=== PATIENT | female | born 1940 | race Caucasian/White ===

== ENCOUNTER 2018-10-25 23:30 | Observation (INO) ==
--- NOTE | 2018-10-25 23:47 | ERNOTE ---
Chest Pain/Cardiac HPI Date of Service: 10/25/18 Chief Complaint: Chest Pain Time Seen by Provider: 10/25/18 23:33 Source: patient Exam Limitations: no limitations Immunizations: IMMUNIZATION HX Immunizations Up to Date Yes History of Influenza Vaccine No Hx Pneumococcal Vaccination No Allergies/Adverse Reactions: Allergies atorvastatin [From Lipitor] Allergy (Intermediate, Verified 10/25/18 23:51) myalgia rabeprazole [From Aciphex] Allergy (Intermediate, Verified 10/25/18 23:51) itching phenobarbital Allergy (Verified 10/25/18 23:51) simvastatin [From Zocor] Adverse Reaction (Intermediate, Verified 10/25/18 23:51) muscle aches aspirin Adverse Reaction (Verified 10/25/18 23:51) pt takes baby aspirin daily, states she is allergic to the "full dose aspirin" Home Medications: HOME MEDICATIONS Aspirin 81 mg PO DAILY 04/24/16 [Last Taken Unknown] Pantoprazole Sodium 40 mg PO DAILY 09/29/17 [Last Taken Unknown] calcium carbonate 500 mg (1,250 mg)-vitamin D3 400 unit tablet 1 tab PO BID 02/27/18 [Last Taken Unknown] carvedilol 6.25 mg tablet 3.1 mg PO BID tab 02/27/18 [Last Taken Unknown] cholecalciferol (vitamin D3) 2,000 unit capsule 2,000 unit PO DAILY 02/27/18 [Last Taken Unknown] esomeprazole magnesium 40 mg capsule,delayed release 40 mg PO DAILY 02/27/18 [Last Taken Unknown] ipratropium-albuterol 0.5 mg-3 mg(2.5 mg base)/3 mL nebulization soln 3 ml IH BID ml 02/27/18 [Last Taken Unknown] furosemide 40 mg tablet 20 mg PO DAILY #90 tab 04/29/18 [Last Taken Unknown] losartan 50 mg tablet 50 mg PO DAILY #90 tab 04/29/18 [Last Taken Unknown] Blood Sugar Diagnostic [Contour Next Test Strips] 0 ea .ROUTE .MEDSUPPLY 06/13/18 [Last Taken Unknown] lancets 30 gauge See Dose Instructions .ROUTE .MEDSUPPLY #200 ea 06/27/18 [Last Taken Unknown] potassium chloride ER 10 mEq tablet,extended release(part/cryst) 10 meq PO DAILY #90 tab 06/27/18 [Last Taken Unknown] Narrative: 78-year-old female approximately an hour ago developed chest pain called the first-aid squad given nitro and aspirin her chest pain in the emergency room was about 7 out of 10 says it is not so bad as compared to before however noted that she is in atrial fibrillation in the rapid ventricular response last EKG dating back to June she was in sinus rhythm but she does have a history of 2016 of atrial fibrillation is also has low sats off O2 she is in the high 80s Timing: constant Severity/Quality: moderate Location: substernal, central Chest Pain Radiation: no radiation Activities at Onset: none Modifying Factors - Improves: Present: nitroglycerin Nitro Today/Relief: 0.4 mg x 1 Aspirin Treatment Today: 325 mg x 1 Associated Symptoms: Present: shortness of breath Prior Chest Pain/Cardiac Workup: Reports: no prior cardiac workup Review of Systems - Review of Systems Constitutional: Present: no symptoms reported EYE: Present: no symptoms reported ENT: Present: no symptoms reported Respiratory: Present: shortness of breath Cardiology: Present: chest pain Gastrointestinal/Abdominal: Present: no symptoms reported Genitourinary: Present: no symptoms reported Musculoskeletal: Present: back pain Skin: Present: no symptoms reported Neurological: Present: no symptoms reported Endocrine: Present: no symptoms reported Psych: Present: no symptoms reported All Other Systems: All systems neg except as marked Medical History (Updated 10/26/18 @ 01:12 by Moe Hoffmann MD) Osteoarthritis (Chronic) Onset Date: Unknown LV dysfunction (Chronic) Onset Date: Unknown Regional LV dysfunction with a hypokinetic septum and apex. Ejection Fraction is 50-55% Intracranial hemorrhage (Chronic) Onset Date: ~05/2015 [facility] Neurosurgery after fall. 05/29/15 CT brain showed left frontal epidural hematoma with 7mm of left to right midline shift, small left frontal parietal subarachnoid hemorrhage. left posterior subgaleal hematoma Hypertension (Chronic) Onset Date: ~1992 Hyperlipidemia (Chronic) Onset Date: ~1992 Hiatal hernia (Chronic) Onset Date: Unknown Glucose intolerance (Chronic) Onset Date: Unknown Diverticulitis (Chronic) Onset Date: Unknown Diabetes 1.5, managed as type 2 (Chronic) Onset Date: Unknown Depression (Chronic) Onset Date: Unknown CAD (coronary artery disease) (Chronic) Onset Date: Unknown two vessel, sub-totally occluded left anterior descending 40-50% stenosis at the origin of the right coronary Anxiety (Chronic) Onset Date: Unknown Hx of bone density study Onset Date: ~03/2003 Osteopenia, spine -1.4, hip -1.9 Myocardial infarction Onset Date: ~200604/24/16 Non Q wave, jasvir-procedural MD as a consequence of a diagonal branch occlusion, non STEMI MD Osteoporosis Onset Date: Unknown Restless leg syndrome Onset Date: Unknown Rotator cuff syndrome Onset Date: Unknown bilateral shoulders right greater than left Surgical History: Surgical History (Updated 02/27/18 @ 15:11 by Gloria White RN) Abnormal angiogram Onset Date: ~04/[address] elevation MD, two vessel CAD, the LAD is chronically occluded after the D1 branch and fills by R to L collaterals. The D1 had a ruptured plaque with a subtotal occlusion and slow flow. The circumflex has diffuse luminal irregularities. The RCA is large with mild luminal irregularities. Stent to the D1 with a 2.25 x 16 mm Synergy DE stent, 99% to 0% Epidermal cyst Onset Date: ~02/25/14 excision epidermal inclusion cyst. Wild; Left breast H/O colonoscopy Onset Date: ~10/09/12 Ermelinda severe sigmoid diverticulosis H/O heart artery stent Onset Date: ~07/2006 Drug eluding stent to the LAD, 07/2006 using a 2.5 x 20mm TAXUS drug eluding stent History of cardiac cath Onset Date: ~2006 Stent placement to the LAD History of cataract surgery Onset Date: ~10/2003 bilateral History of craniotomy Onset Date: ~05/29/15 [facility] History of esophagogastroduodenoscopy (EGD) Onset Date: ~02/02/13 Wild with foreign body removal History of esophagogastroduodenoscopy (EGD) Onset Date: ~10/09/12 with Biopsy; Ermelinda Vianey test Negative, large hiatal hernia History of hysterectomy Onset Date: ~1971 Abdominal History of incision and drainage Onset Date: ~02/10/14 Talhayony; Left breast abscess- epidermal inclusion cyst with acute inflammation Hx laparoscopic cholecystectomy Onset Date: ~1982 open Family History: Family History (Updated 02/27/18 @ 15:30 by Gloria White RN) Father , age 57 CVA (cerebral vascular accident) Mother , age 73 COPD (chronic obstructive pulmonary disease) Social History: Preferred Language Nepali Smoking Status Never smoker Abuse History No History of abuse Psych History No pertinent hx (Last Updated 02/27/18 @ 15:32 by Gloria White RN) No Social History Section defined Physical Exam - Physical Exam General Appearance: Present: wd/wn, alert, moderate distress Head Exam: Present: normal inspection, no evidence of injury Eye Exam: Normal inspection: bilateral Ears, Nose, Throat: Present: normal ENT inspection Neck: Present: normal inspection, nontender Respiratory: Present: decreased breath sounds, rales, wheezing Cardiovascular/Chest: Present: irregularly irregular Peripheral Pulses: N=norm/S=strong/W=weak/B=bound/A=absent: Carotid (R): Normal, Carotid (L): Normal Gastrointestinal/Abdominal: Present: normal bowel sounds Back Exam: Present: normal inspection, normal range of motion Extremity Exam: Present: normal inspection, no edema Neurological Exam: Present: alert, oriented Skin Exam: Present: normal color Progress - Vital Signs Patient's Vital Signs:: I have reviewed the patient's vital signs. Vital Signs: Vital Signs 10/25/18 23:32 Temperature 36.6 C Pulse Rate 121 H Respiratory Rate 18 O2 Sat by Pulse Oximetry 86 L - EKG EKG #1 EKG: atrial fibrillation EKG read: Interp. by me EKG Comments: Atrial fibrillation rapid ventricular response heart rate 116 incomplete right bundle branch block LVH new finding compared to EKG dated 06/13 9 - X-Ray X-Ray #1 X-Ray: chest Interpretation: Interp. by me X-ray Comments: No acute disease - Progress/Reassessment Chief Complaint: Chest Pain Departure Clinical Impression: Atrial fibrillation with rapid ventricular response, CHF (congestive heart failure), UTI (urinary tract infection) - Departure Disposition: Short Term Hospital Inpatient Condition: Stable Referrals: Suman Sewell MD [Primary Care Provider] -
[2018-10-25] MEDS ORDERED: ALBUTEROL SULFATE/IPRATROPIUM 3 ML NEBU IH ONE ×2 (23:51→23:52)
[2018-10-25] MEDS ORDERED: DILTIAZEM HCL 5 MG/ML VIAL IV ONE ×2 (23:51→23:53)
[2018-10-25] MEDS ORDERED: DILTIAZEM HCL 125 MG in DEXTROSE 5 % IN WATER 100 ML IV PRN ×2 (23:52)
[2018-10-26 00:11] LABS: Hematocrit 42.7 % (37.0-47.0); Hemoglobin 14.7 gm/dL (12.5-16.0); Mean Cell Volume 95.5 fl (78-100); Mean Corpuscular Hemoglobin 32.9 pg (27-31); Mean Corpuscular Hgb Conc 34.4 g/dl (32-36); Mean Platelet Volume 10.8 fl (8-12.5); Neutrophil % 56.8 % (42-75.0); Platelet Count 219 K/mm3 (150-450); Red Blood Count 4.47 M/mm3 (4.2-5.4); Red Cell Distribution Width 12.5 % (11.5-14.0); White Blood Count 7.1 K/mm3 (4.0-10.5)
[2018-10-26 00:22] LABS: Prothrombin Time (Patient) 10.5 Seconds (9.1-10.7)
[2018-10-26 00:24] LABS: Urine Bilirubin Negative (NEGATIVE); Urine Ketone Negative (NEGATIVE); Urine Nitrite Negative (NEGATIVE); Urine Protein 30 mg/dL (NEGATIVE); Urine Urobilinogen Normal (NORMAL)
[2018-10-26 00:25] LABS: INR 1.06 INR (0.92-1.08)
[2018-10-26 00:26] LABS: Partial Thrombolplastin Time 22.8 Seconds (24-32)
[2018-10-26 00:34] LABS: ALT 17 U/L (19-67); AST 19 U/L (0-48); Albumin * 3.5 gm/dl (3.4-5.0); Alkaline Phosphatase * 48 U/L (50-170); Anion Gap 9.9 mmol/L (6.8-13.8); BNP * 2416 pg/mL (5-550); BUN/Creatinine Ratio 24.1 (9.0-21.6); Bilirubin, Total 0.6 mg/dL (0.0-1.1); Blood Urea Nitrogen 19 mg/dL (3-23); Ca. Corrected For Albumin 9.2 mg/dL (8.4-10.2); Calcium * 9.1 mg/dL (7.9-10.9); Carbon Dioxide 30.7 mmol/L (24-32.6); Chloride 103 mmol/L (97-106); Glucose * 227 mg/dL (70-110); Potassium 3.6 mmol/L (3.4-4.6); Sodium 140 mmol/L (132-142); Total Protein 7.1 gm/dL (6.2-8.2); Troponin I Less than 0.017 ng/mL (0.00-0.10)
[2018-10-26 00:35] LABS: Urine Appearance Slightly Cloudy (CLEAR); Urine Blood 5 /ul (NEGATIVE); Urine Color Yellow
[2018-10-26 00:36] LABS: Urine Bacteria 1+; Urine RBC None Seen /hpf (0-5); Urine WBC 0-5 /hpf (0-5)
[2018-10-26] MEDS ORDERED: FUROSEMIDE 10 MG/ML VIAL IV ONE (00:47)
[2018-10-26] MEDS ORDERED: ENOXAPARIN SODIUM 80 MG/0.8 ML DISP.SYRIN SC ONE (01:08)
[2018-10-26] MEDS ORDERED: NITROFURANTOIN/NITROFURAN MAC 100 MG CAPSULE PO ONE (01:15)
[2018-10-26] MEDS ORDERED: DILTIAZEM HCL 240 MG CAP.SR.24H PO SCH (07:30)
--- NOTE | 2018-10-26 07:55 | HP ---
Chief Complaint - Chief Complaint Date of Service: 10/26/18 Time of Service: 07:10 Chief Complaint: dyspnea, atrial fib new onset with rvr History of Present Illness: Ann Cook is an 78-year-old female who presented to the emergency room with chief complaint of dyspnea. Evaluation in the emergency room revealed that she was in congestive heart failure and was in atrial fibrillation with rapid ventricular response. She was given IV furosemide and diuresed a large amount of fluid. She was also given diltiazem 20 mg IV push and then put on a diltiazem drip. Then she was admitted to SCU and arrived in SCU about [address] longoria called me at 1:10 AM to advise of her admission. She then converted to normal sinus rhythm about 5:00 this morning. She is no longer short of breath. She is not feeling back to normal just yet but she does feel better than she did on admission. Auscultation of her lungs this morning is clear. She is in normal sinus rhythm rate of 80. Her O2 sats are in the mid 90s. I will convert her over to oral diltiazem and then an hour later discontinue the IV diltiazem. Nursing will get her up to walk and monitor her heart during activity. Anticipate discharge this afternoon. Medical History (Updated 10/26/18 @ 01:12 by Moe Hoffmann MD) Osteoarthritis (Chronic) Onset Date: Unknown LV dysfunction (Chronic) Onset Date: Unknown Regional LV dysfunction with a hypokinetic septum and apex. Ejection Fraction is 50-55% Intracranial hemorrhage (Chronic) Onset Date: ~05/2015 [facility] Neurosurgery after fall. 05/29/15 CT brain showed left frontal epidural hematoma with 7mm of left to right midline shift, small left frontal parietal subarachnoid hemorrhage. left posterior subgaleal hematoma Hypertension (Chronic) Onset Date: ~1992 Hyperlipidemia (Chronic) Onset Date: ~1992 Hiatal hernia (Chronic) Onset Date: Unknown Glucose intolerance (Chronic) Onset Date: Unknown Diverticulitis (Chronic) Onset Date: Unknown Diabetes 1.5, managed as type 2 (Chronic) Onset Date: Unknown Depression (Chronic) Onset Date: Unknown CAD (coronary artery disease) (Chronic) Onset Date: Unknown two vessel, sub-totally occluded left anterior descending 40-50% stenosis at the origin of the right coronary Anxiety (Chronic) Onset Date: Unknown Hx of bone density study Onset Date: ~03/2003 Osteopenia, spine -1.4, hip -1.9 Myocardial infarction Onset Date: ~200604/24/16 Non Q wave, jasvir-procedural MD as a consequence of a diagonal branch occlusion, non STEMI MD Osteoporosis Onset Date: Unknown Restless leg syndrome Onset Date: Unknown Rotator cuff syndrome Onset Date: Unknown bilateral shoulders right greater than left Surgical History: Surgical History (Updated 02/27/18 @ 15:11 by Gloria White RN) Abnormal angiogram Onset Date: ~04/[address] elevation MD, two vessel CAD, the LAD is chronically occluded after the D1 branch and fills by R to L collaterals. The D1 had a ruptured plaque with a subtotal occlusion and slow flow. The circumflex has diffuse luminal irregularities. The RCA is large with mild luminal irregularities. Stent to the D1 with a 2.25 x 16 mm Synergy DE stent, 99% to 0% Epidermal cyst Onset Date: ~02/25/14 excision epidermal inclusion cyst. Wild; Left breast H/O colonoscopy Onset Date: ~10/09/12 Ermelinda severe sigmoid diverticulosis H/O heart artery stent Onset Date: ~07/2006 Drug eluding stent to the LAD, 07/2006 using a 2.5 x 20mm TAXUS drug eluding stent History of cardiac cath Onset Date: ~2006 Stent placement to the LAD History of cataract surgery Onset Date: ~10/2003 bilateral History of craniotomy Onset Date: ~05/29/15 [facility] History of esophagogastroduodenoscopy (EGD) Onset Date: ~02/02/13 Wild with foreign body removal History of esophagogastroduodenoscopy (EGD) Onset Date: ~10/09/12 with Biopsy; Ermelinda Vianey test Negative, large hiatal hernia History of hysterectomy Onset Date: ~1971 Abdominal History of incision and drainage Onset Date: ~02/10/14 [place]; Left breast abscess- epidermal inclusion cyst with acute inflammation Hx laparoscopic cholecystectomy Onset Date: ~1982 open Family History: Family History (Updated 02/27/18 @ 15:30 by Gloria White RN) Father , age 57 CVA (cerebral vascular accident) Mother , age 73 COPD (chronic obstructive pulmonary disease) Social History: Patient Lives/Resources [facility] Utilized Occupation Retired Preferred Language Chinese Do you have any christianity or No cultural preference? Smoking Status Never smoker Have you smoked in the past 12 No months Do you dip or chew tobacco No Abuse History No History of abuse Psych History No pertinent hx Alcohol Use none Drug Use none (Last Updated 02/27/18 @ 15:32 by Gloria White RN) No Social History Section defined Review Of Systems (GEN) - Review of Systems Generalized/Overall Review: Present: Weakness, Malaise EENTM: Present: No Symptoms Reported Respiratory: Present: Shortness of Breath, Wheezing Cardiac: Present: Palpitations Abdominal: Present: No Symptoms Reported Genitourinary: Present: No Symptoms Reported Musculoskeletal: Present: No Symptoms Reported Neurological: Present: No Symptoms Reported Skin: Present: No Symptoms Reported Endocrine: Present: No Symptoms Reported Misc: All systems neg except as marked Immunizations: IMMUNIZATION HX Immunizations Up to Date Yes History of Influenza Vaccine No Hx Pneumococcal Vaccination No Allergies/Adverse Reactions: Allergies Allergy/AdvReac Type Severity Reaction Status Date / Time atorvastatin [From Lipitor] Allergy Intermediate myalgia Verified 10/25/18 23:51 rabeprazole [From Aciphex] Allergy Intermediate itching Verified 10/25/18 23:51 phenobarbital Allergy Verified 10/25/18 23:51 simvastatin [From Zocor] AdvReac Intermediate muscle Verified 10/25/18 23:51 aches aspirin AdvReac Verified 10/25/18 23:51 Home Medications: HOME MEDICATIONS Aspirin 81 mg PO DAILY 04/24/16 [Last Taken Unknown] Pantoprazole Sodium 40 mg PO DAILY 09/29/17 [Last Taken Unknown] calcium carbonate 500 mg (1,250 mg)-vitamin D3 400 unit tablet 1 tab PO BID 02/27/18 [Last Taken Unknown] carvedilol 6.25 mg tablet 3.1 mg PO BID tab 02/27/18 [Last Taken Unknown] cholecalciferol (vitamin D3) 2,000 unit capsule 1,000 unit PO DAILY 02/27/18 [Last Taken Unknown] ipratropium-albuterol 0.5 mg-3 mg(2.5 mg base)/3 mL nebulization soln 3 ml IH BID ml 02/27/18 [Last Taken Unknown] furosemide 40 mg tablet 20 mg PO DAILY #90 tab 04/29/18 [Last Taken Unknown] losartan 50 mg tablet 50 mg PO DAILY #90 tab 04/29/18 [Last Taken Unknown] Blood Sugar Diagnostic [Contour Next Test Strips] 0 ea .ROUTE .MEDSUPPLY 06/13/18 [Last Taken Unknown] lancets 30 gauge See Dose Instructions .ROUTE .MEDSUPPLY #200 ea 06/27/18 [Last Taken Unknown] potassium chloride ER 10 mEq tablet,extended release(part/cryst) 10 meq PO DAILY #90 tab 06/27/18 [Last Taken Unknown] Exam - Exam Vital Signs: Vital Signs - Last Taken Temp 36.7 C 10/26/18 03:52 Pulse 68 10/26/18 06:59 Resp 16 10/26/18 06:59 BP 139/68 10/26/18 06:59 Pulse Ox 100 10/26/18 06:59 Constitutional: Present: Alert, Oriented x3, Cooperative, Well developed, Well nourished, No distress ENT Exam: Present: normal ENT inspection, hearing grossly normal, pharynx normal, TMs normal Eye Exam: bilateral eye: normal inspection, PERRL, EOMI Neck: Present: non-tender, full range of motion Back Exam: Present: normal inspection, no CVA tenderness, no vertebral tenderness Breasts: Present: Exam deferred Respiratory: Present: chest non-tender, lungs clear Cardiovascular/Chest: Present: normal peripheral pulses, regular rate, rhythm, no chest tenderness, no edema, no gallop, no JVD, no murmur, no rub Peripheral Pulses: carotid (R): 2+, carotid (L): 2+, radial (R): 2+, radial (L): 2+ Abdomen: Present: Normal bowel sounds, soft, nontender, nondistended, no rebound tenderness, no hepatospenomegaly, no masses /Rectal: Present: Exam deferred Extremity: Present: normal range of motion, non-tender, normal inspection, no pedal edema, no calf tenderness, normal capillary refill Skin Exam: Present: normal color, warm/dry, no cyanosis Lymphatic: Present: no adenopathy Neurologic: Present: meat pickler II-XII nml as tested, normal cerebellar test, no motor/sensory deficits, alert, normal mood/affect, oriented x 3 Appearance: Present: appropriate appearance, appropriate insight, neat, no memory impairment Eye contact: Present: cooperative, good eye contact, normal speech Thoughts: Present: normal thought pattern, no apparent hallucination Diagnostic Studies: Abnormal Lab Results 10/25/18 10/25/18 10/25/18 Range/Units 23:50 23:50 23:50 MCH 32.9 H (27-31) pg Monocytes % 9.2 H (0.0-9) % PTT ([place]) 22.8 L (24-32) Seconds BUN/Creatinine Ratio 24.1 H (9.0-21.6) Random Glucose 227 H (70-110) mg/dL ALT 17 L (19-67) U/L Alkaline Phosphatase 48 L (50-170) U/L B-Natriuretic Peptide 2416 H (5-550) pg/mL Urine Protein (NEGATIVE) mg/dL Urine Glucose (UA) (NEGATIVE) mg/dL Urine Blood (NEGATIVE) /ul Ur Leukocyte Esterase (NEGATIVE) /ul Ur Epithelial Cells (0-5) /hpf Urine Bacteria (NONE) 10/26/18 Range/Units 00:26 MCH (27-31) pg Monocytes % (0.0-9) % PTT ([place]) (24-32) Seconds BUN/Creatinine Ratio (9.0-21.6) Random Glucose (70-110) mg/dL ALT (19-67) U/L Alkaline Phosphatase (50-170) U/L B-Natriuretic Peptide (5-550) pg/mL Urine Protein 30 H (NEGATIVE) mg/dL Urine Glucose (UA) 250 H (NEGATIVE) mg/dL Urine Blood 5 H (NEGATIVE) /ul Ur Leukocyte Esterase 75 H (NEGATIVE) /ul Ur Epithelial Cells 5-10 H (0-5) /hpf Urine Bacteria 1+ H (NONE) Microbiology 10/26/18 00:05 Urine Culture - Preliminary Urine,Voided No Growth Laboratory Results WBC 7.1 K/mm3 (4.0-10.5) 10/25/18 23:50 RBC 4.47 M/mm3 (4.2-5.4) 10/25/18 23:50 Hgb 14.7 gm/dL (12.5-16.0) 10/25/18 23:50 Hct 42.7 % (37.0-47.0) 10/25/18 23:50 MCV 95.5 fl (78-100) 10/25/18 23:50 MCH 32.9 pg (27-31) H 10/25/18 23:50 MCHC 34.4 g/dl (32-36) 10/25/18 23:50 RDW 12.5 % (11.5-14.0) 10/25/18 23:50 Plt Count 219 K/mm3 (150-450) 10/25/18 23:50 MPV 10.8 fl (8-12.5) 10/25/18 23:50 Immature Gran % (Auto) 0.10 % (0.001-0.429) 10/25/18 23:50 Immature Gran # (Auto) 0.01 K/mm3 (0.000-0.0310) 10/25/18 23:50 56.8 % (42-75.0) 10/25/18 23:50 31.5 % (20-51) 10/25/18 23:50 9.2 % (0.0-9) H 10/25/18 23:50 2.0 % (0.0-3.0) 10/25/18 23:50 0.4 % (0.0-1.0) 10/25/18 23:50 Nucleated RBC % 0.0 k/mm3 (0-1) 10/25/18 23:50 4.0 K/mm3 (1.3-6.0) 10/25/18 23:50 2.24 k/mm3 (1.5-3.5) 10/25/18 23:50 0.7 k/mm3 (0.0-1.0) 10/25/18 23:50 0.1 k/mm3 (0.0-0.7) 10/25/18 23:50 Absolute Basophils 0.0 k/mm3 (0.0-0.1) 10/25/18 23:50 PT 10.5 Seconds (9.1-10.7) 10/25/18 23:50 INR (Anticoag Therapy) 1.06 INR (0.92-1.08) 10/25/18 23:50 PTT ([place]) 22.8 Seconds (24-32) L 10/25/18 23:50 Sodium 140 mmol/L (132-142) 10/25/18 23:50 142 mmol/L (130-142) 10/25/18 23:50 Potassium 3.6 mmol/L (3.4-4.6) 10/25/18 23:50 Chloride 103 mmol/L (97-106) 10/25/18 23:50 Carbon Dioxide 30.7 mmol/L (24-32.6) 10/25/18 23:50 9.9 mmol/L (6.8-13.8) 10/25/18 23:50 BUN 19 mg/dL (3-23) 10/25/18 23:50 0.79 mg/dL (0.4-1.4) 10/25/18 23:50 Est GFR (Non-Af Amer) 74 mL/min (60-130) 10/25/18 23:50 24.1 (9.0-21.6) H 10/25/18 23:50 227 mg/dL (70-110) H 10/25/18 23:50 Calcium 9.1 mg/dL (7.9-10.9) 10/25/18 23:50 Calcium Adj for Albumin 9.2 mg/dL (8.4-10.2) 10/25/18 23:50 0.6 mg/dL (0.0-1.1) 10/25/18 23:50 AST 19 U/L (0-48) 10/25/18 23:50 ALT 17 U/L (19-67) L 10/25/18 23:50 48 U/L (50-170) L 10/25/18 23:50 Less than 0.017 ng/mL (0.00-0.10) 10/25/18 23:50 B-Natriuretic Peptide 2416 pg/mL (5-550) H 10/25/18 23:50 7.1 gm/dL (6.2-8.2) 10/25/18 23:50 3.5 gm/dl (3.4-5.0) 10/25/18 23:50 Yellow 10/26/18 00:26 Slightly cloudy (CLEAR) 10/26/18 00:26 7.0 pH (5.0-7.0) 10/26/18 00:26 Ur Specific [place] 1.020 SP.GR. (1.005-1.010) 10/26/18 00:26 30 mg/dL (NEGATIVE) H 10/26/18 00:26 250 mg/dL (NEGATIVE) H 10/26/18 00:26 Negative mg/dL (NEGATIVE) 10/26/18 00:26 5 /ul (NEGATIVE) H 10/26/18 00:26 Negative (NEGATIVE) 10/26/18 00:26 Negative mg/dl (NEGATIVE) 10/26/18 00:26 Prot Sulfosalicylic Acd 1+ mg/dL (0) 10/26/18 00:26 Normal EU/dl (NORMAL) 10/26/18 00:26 Ur Leukocyte Esterase 75 /ul (NEGATIVE) H 10/26/18 00:26 None seen /hpf (0-5) 10/26/18 00:26 0-5 /hpf (0-5) 10/26/18 00:26 Ur Epithelial Cells 5-10 /hpf (0-5) H 10/26/18 00:26 1+ (NONE) H 10/26/18 00:26 Culture to follow 10/26/18 00:26 Assessment/Plan - Narrative Narrative: 1. Change from SCU regular admission to code 44 observation stay 2. Add diltiazem SR 240 mg 1 daily 3. DC Hansen catheter 4. Ambulate in the SCU area while monitoring her heart. 5. Anticipate discharge late this afternoon. - Assessment/Plan (1) Atrial fibrillation with rapid ventricular response Problem: Acute (2) CHF (congestive heart failure) Problem: Acute (3) Dyspnea Problem: Acute Qualifiers: Dyspnea type: shortness of breath Qualified Code(s): R06.02 - Shortness of breath; R06.00 - Dyspnea, unspecified; R06.01 - Orthopnea (4) CAD (coronary artery disease) Problem: Chronic Qualifiers: Coronary Disease-Associated Artery/Lesion type: [place] artery [place] vs. transplanted heart: [place] heart Associated angina: without angina Qualified Code(s): I25.10 - Atherosclerotic heart disease of [place] coronary artery without angina pectoris
[2018-10-26] MEDS ORDERED: PANTOPRAZOLE SODIUM 40 MG TABLET.EC PO SCH (08:00)
[2018-10-26] MEDS ORDERED: ALBUTEROL SULFATE/IPRATROPIUM 3 ML NEBU IH SCH (08:00)
[2018-10-26] MEDS ORDERED: POTASSIUM CHLORIDE 10 MEQ TABLET.SA PO SCH (09:00)
[2018-10-26] MEDS ORDERED: CARVEDILOL 3.125 MG TABLET PO SCH (09:00)
[2018-10-26] MEDS ORDERED: LOSARTAN POTASSIUM 50 MG TABLET PO SCH (09:00)
[2018-10-26] MEDS ORDERED: ASPIRIN 81 MG TAB.CHEW PO SCH (09:00)
[2018-10-26] MEDS ORDERED: FUROSEMIDE 20 MG TABLET PO SCH (11:00)
--- NOTE | 2018-10-26 13:44 | DS ---
(1) Atrial fibrillation with rapid ventricular response Problem: Resolved (2) CHF (congestive heart failure) Problem: Acute Qualifiers: Heart failure type: unspecified Heart failure chronicity: acute Qualified Code(s): I50.9 - Heart failure, unspecified (3) Dyspnea Problem: Resolved Qualifiers: Dyspnea type: shortness of breath Qualified Code(s): R06.02 - Shortness of breath; R06.00 - Dyspnea, unspecified; R06.01 - Orthopnea (4) Sinus bradycardia Problem: Acute (5) CAD (coronary artery disease) Problem: Chronic Qualifiers: Coronary Disease-Associated Artery/Lesion type: [place] artery [place] vs. transplanted heart: [place] heart Associated angina: without angina Qualified Code(s): I25.10 - Atherosclerotic heart disease of [place] coronary artery without angina pectoris Description of Stay: Ann Cook is an 78-year-old female admitted through the emergency room with atrial fibrillation and rapid ventricular response. She was started with IV diltiazem 20 mg and then placed on a diltiazem drip per protocol. She converted to normal sinus rhythm very early this morning and has remained in sinus rhythm for about the last 6 hours. I started her on oral diltiazem and discontinue the diltiazem drip. She has done very well and has had no return of atrial fibrillation. She was also diuresed in the emergency room and large amount of fluid was removed. A Hansen catheter was placed because of the diuresis but it has since been removed. This afternoon her heart rate dropped from 76 to about 52 bpm. It is sinus bradycardia. She is completely asymptomatic with this. She has been up and walking in the halls with the standby assist and has done very well. She can be discharged after 4 PM. Procedures Performed: none Results and Findings: Pending Mircobiology Results 10/26/18 00:05 Urine,Voided Urine Culture - Preliminary No Growth Lab Pending Results 10/25/18 23:50: WBC 7.1, RBC 4.47, Hgb 14.7, Hct 42.7, MCV 95.5, MCH 32.9 H, MCHC 34.4, RDW 12.5, Plt Count 219, MPV 10.8, Immature Gran % (Auto) 0.10, Immature Gran # (Auto) 0.01, Neutrophils % 56.8, Lymphocytes % 31.5, Monocytes % 9.2 H, Eosinophils % 2.0, Basophils % 0.4, Nucleated RBC % 0.0, Neutrophils # 4.0, Lymphocytes # 2.24, Monocytes # 0.7, Eosinophils # 0.1, Absolute Basophils 0.0 10/25/18 23:50: Sodium 140, Plasma Sodium 142, Potassium 3.6, Chloride 103, Carbon Dioxide 30.7, Anion Gap 9.9, BUN 19, Creatinine 0.79, Est GFR (Non-Af Amer) 74, BUN/Creatinine Ratio 24.1 H, Random Glucose 227 H, Calcium 9.1, Calcium Adj for Albumin 9.2, Total Bilirubin 0.6, AST 19, ALT 17 L, Alkaline Phosphatase 48 L, Troponin I Less than 0.017, B-Natriuretic Peptide 2416 H, Total Protein 7.1, Albumin 3.5 10/25/18 23:50: PT 10.5, INR (Anticoag Therapy) 1.06, PTT ([place]) 22.8 L 10/26/18 00:26: Urine Color Yellow, Urine Appearance Slightly cloudy, Urine pH 7.0, Ur Specific [place] 1.020, Urine Protein 30 H, Urine Glucose (UA) 250 H, Urine Ketones Negative, Urine Blood 5 H, Urine Nitrate Negative, Urine Bilirubin Negative, Prot Sulfosalicylic Acd 1+, Urine Urobilinogen Normal, Ur Leukocyte Esterase 75 H, Urine RBC None seen, Urine WBC 0-5, Ur Epithelial Cells 5-10 H, Urine Bacteria 1+ H, Urine Culture Comments Culture to follow Discharge Location: Home Disposition: Home self-care Condition: Stable Discharge Activity: Activity as tolerated Discharge Diet: Consistent carbs Referrals: Suman Sewell MD [Primary Care Provider] - Additional Patient Instructions (free text): he is to see Dr. Sewell in his office within the next 2 weeks. Avoid stimulants such as caffeine. Weigh each morning and record. Take the weights to your next appointment with Dr. Sewell. Prescriptions (Any new or edited meds): Diltiazem HCl [Diltiazem 24Hr ER] 180 mg PO DAILY #30 cap.sa.24h Complete Home Medications List: Complete Home Medication List: Aspirin 81 mg PO DAILY 04/24/16 Pantoprazole Sodium 40 mg PO DAILY 04/22/18 calcium carbonate 500 mg (1,250 mg)-vitamin D3 400 unit tablet 1 tab PO BID 02/27/18 carvedilol 6.25 mg tablet 3.1 mg PO BID tab 02/27/18 cholecalciferol (vitamin D3) 2,000 unit capsule 1,000 unit PO DAILY 02/27/18 ipratropium-albuterol 0.5 mg-3 mg(2.5 mg base)/3 mL nebulization soln 3 ml IH BID ml 02/27/18 furosemide 40 mg tablet 20 mg PO DAILY #90 tab 04/29/18 losartan 50 mg tablet 50 mg PO DAILY #90 tab 04/29/18 Blood Sugar Diagnostic [Contour Test Strip] 0 ea .ROUTE .MEDSUPPLY 06/13/18 lancets 30 gauge See Dose Instructions .ROUTE .MEDSUPPLY #200 ea 06/27/18 potassium chloride ER 10 mEq tablet,extended release(part/cryst) 10 meq PO DAILY #90 tab 06/27/18 Diltiazem HCl [Diltiazem 24Hr ER] 180 mg PO DAILY #30 cap.sa.24h 10/26/18
[2018-10-26 16:17] VITALS: BP 132/72
== END 2018-10-26 16:35 | disposition home or self-care (01) ==
LOC: ER 23:30 → INTOOBSV 10-26 01:24 → SCU 10-26 01:24
PROVIDERS: ADMIT Family Medicine; ATTEND Internal Medicine
CPT/HCPCS: 36415; 71010; 71045; 80053; 81001; 83519; 83880; 84484; 85025; 85610; 85730; 87086; 93005; 94640; 94664; 96365; 96366; 96372; 96375; 99285; G0378

== ENCOUNTER 2019-02-22 06:09 | Observation (INO) ==
[2019-02-22] MEDS ORDERED: ASPIRIN 81 MG TAB.CHEW ONE (06:19)
[2019-02-22] MEDS ORDERED: ASPIRIN 81 MG TAB.CHEW PO ONE ×2 (06:20→06:21)
[2019-02-22] MEDS ORDERED: NITROGLYCERIN 0.4 MG/TAB BTL SL ONE (06:20)
--- NOTE | 2019-02-22 06:26 | ERNOTE ---
Chest Pain/Cardiac HPI Date of Service: 02/22/19 Chief Complaint: Chest Pain Time Seen by Provider: 02/22/19 06:18 Source: patient Immunizations: IMMUNIZATION HX Immunizations Up to Date Yes History of Influenza Vaccine No Hx Pneumococcal Vaccination No Allergies/Adverse Reactions: Allergies atorvastatin [From Lipitor] Allergy (Intermediate, Verified 02/22/19 07:00) myalgia rabeprazole [From Aciphex] Allergy (Intermediate, Verified 02/22/19 07:00) itching phenobarbital Allergy (Verified 02/22/19 07:00) simvastatin [From Zocor] Adverse Reaction (Intermediate, Verified 02/22/19 07:00) muscle aches aspirin Adverse Reaction (Verified 02/22/19 07:00) pt takes baby aspirin daily, states she is allergic to the "full dose aspirin" Home Medications: HOME MEDICATIONS Aspirin 81 mg PO DAILY 04/24/16 [Last Taken Unknown] Pantoprazole Sodium 40 mg PO DAILY 09/29/17 [Last Taken Unknown] calcium carbonate 500 mg (1,250 mg)-vitamin D3 400 unit tablet 1 tab PO BID 02/27/18 [Last Taken Unknown] carvedilol 6.25 mg tablet 3.1 mg PO BID tab 02/27/18 [Last Taken Unknown] cholecalciferol (vitamin D3) 2,000 unit capsule 1,000 unit PO DAILY 02/27/18 [Last Taken Unknown] ipratropium-albuterol 0.5 mg-3 mg(2.5 mg base)/3 mL nebulization soln 3 ml IH BID ml 02/27/18 [Last Taken Unknown] furosemide 40 mg tablet 20 mg PO DAILY #90 tab 04/29/18 [Last Taken Unknown] Blood Sugar Diagnostic [Contour Test Strip] 0 ea .ROUTE .MEDSUPPLY 06/13/18 [Last Taken Unknown] lancets 30 gauge See Dose Instructions .ROUTE .MEDSUPPLY #200 ea 06/27/18 [Last Taken Unknown] potassium chloride ER 10 mEq tablet,extended release(part/cryst) 10 meq PO DAILY #90 tab 06/27/18 [Last Taken Unknown] diltiazem ER 180 mg capsule,24 hr,extended release See Rx Instructions .ROUTE .COMPLEX #30 capsule 12/22/18 [Last Taken Unknown] losartan 50 mg tablet 50 mg PO DAILY #90 tab 12/22/18 [Last Taken Unknown] blood sugar diagnostic strips See Dose Instructions .ROUTE .MEDSUPPLY #100 ea 12/23/18 [Last Taken Unknown] Narrative: This is an 78-year-old female who comes from assisted living facility complaining of chest pain. She says she was fine yesterday and all night. She got up to go to the bathroom this morning and says "I felt like I was going to pass out "she said that she had chest pain, but when I asked her to describe it she really had a hard time. She said she did not pass out. The patient denies having shortness of breath, nausea, vomiting, radiation of the pain, coughing, diaphoresis. Patient says she had a heart attack a while ago. According to the chart it was 2015. The patient cannot tell me whether or not this pain is similar to the pain from her heart attack. Patient is an extremely poor historian really having trouble quantifying or clarifying any of her statements. Review of Systems - Narrative Narrative: Extremely difficult to obtain a review of systems secondary to the patient saying frequently "I just do not know what is going on " - Review of Systems Constitutional: Present: no symptoms reported. Absent: diaphoresis EYE: Present: no symptoms reported ENT: Present: no symptoms reported Respiratory: Absent: shortness of breath, cough, wheezing Cardiology: Present: chest pain, other - Per EMS the chest pain changed with position. When I said this out while the patient looked at us and said O it did? Gastrointestinal/Abdominal: Absent: nausea, vomiting, diarrhea Genitourinary: Present: no symptoms reported Musculoskeletal: Present: no symptoms reported Skin: Present: no symptoms reported Neurological: Present: no symptoms reported, other - Patient says "my memory is not so good " Endocrine: Present: no symptoms reported Hematologic/Lymphatic: Present: no symptoms reported Psych: Present: no symptoms reported Medical History (Updated 02/22/19 @ 08:07 by Tavo Daugherty MD) Osteoarthritis (Chronic) Onset Date: Unknown LV dysfunction (Chronic) Onset Date: Unknown Regional LV dysfunction with a hypokinetic septum and apex. Ejection Fraction is 50-55% Intracranial hemorrhage (Chronic) Onset Date: ~05/2015 [facility] Neurosurgery after fall. 05/29/15 CT brain showed left frontal epidural hematoma with 7mm of left to right midline shift, small left frontal parietal subarachnoid hemorrhage. left posterior subgaleal hematoma Hypertension (Chronic) Onset Date: ~1992 Hyperlipidemia (Chronic) Onset Date: ~1992 Hiatal hernia (Chronic) Onset Date: Unknown Glucose intolerance (Chronic) Onset Date: Unknown Diverticulitis (Chronic) Onset Date: Unknown Diabetes 1.5, managed as type 2 (Chronic) Onset Date: Unknown Depression (Chronic) Onset Date: Unknown CAD (coronary artery disease) (Chronic) Onset Date: Unknown two vessel, sub-totally occluded left anterior descending 40-50% stenosis at the origin of the right coronary Anxiety (Chronic) Onset Date: Unknown Atrial fibrillation with RVR 10/25/2018- converted to SR with diltiazem Hx of bone density study Onset Date: ~03/2003 Osteopenia, spine -1.4, hip -1.9 Myocardial infarction Onset Date: ~200604/24/16 Non Q wave, jasvir-procedural OR as a consequence of a diagonal branch occlusion, non STEMI OR Osteoporosis Onset Date: Unknown Restless leg syndrome Onset Date: Unknown Rotator cuff syndrome Onset Date: Unknown bilateral shoulders right greater than left Surgical History: Surgical History (Updated 10/26/18 @ 07:55 by Zander Stevens DO) Abnormal angiogram Onset Date: ~04/[address] elevation OR, two vessel CAD, the LAD is chronically occluded after the D1 branch and fills by R to L collaterals. The D1 had a ruptured plaque with a subtotal occlusion and slow flow. The circumflex has diffuse luminal irregularities. The RCA is large with mild luminal irregularities. Stent to the D1 with a 2.25 x 16 mm Synergy DE stent, 99% to 0% Epidermal cyst Onset Date: ~02/25/14 excision epidermal inclusion cyst. Tinguely; Left breast H/O colonoscopy Onset Date: ~10/09/12 [place] severe sigmoid diverticulosis H/O heart artery stent Onset Date: ~07/2006 Drug eluding stent to the LAD, 07/2006 using a 2.5 x 20mm TAXUS drug eluding stent History of cardiac cath Onset Date: ~2006 Stent placement to the LAD History of cataract surgery Onset Date: ~10/2003 bilateral History of craniotomy Onset Date: ~05/29/15 [facility] History of esophagogastroduodenoscopy (EGD) Onset Date: ~02/02/13 Tinguely with foreign body removal History of esophagogastroduodenoscopy (EGD) Onset Date: ~10/09/12 with Biopsy; Ermelinda Vianey test Negative, large hiatal hernia History of hysterectomy Onset Date: ~1971 Abdominal History of incision and drainage Onset Date: ~02/10/14 Tinguely; Left breast abscess- epidermal inclusion cyst with acute inflammation Hx laparoscopic cholecystectomy Onset Date: ~1982 open Family History: Family History (Updated 02/27/18 @ 15:30 by Gloria White RN) Father , age 57 CVA (cerebral vascular accident) Mother , age 73 COPD (chronic obstructive pulmonary disease) Social History: (Last Reviewed 02/22/19 @ 07:00 by Lucia Snell RN) Social History: adopted: No Marital status: lives independently: Yes household members: none number of children: 7 current occupational status: retired Highest education level completed: 11th grade Service: No Tobacco: Smoking Status: Never smoker Alcohol: alcohol intake: former Substance Use: substance use type: unknown Dietary Habits: caffeine: No Physical Exam - Physical Exam General Appearance: Present: wd/wn, alert, no apparent distress, other - Patient refuses to make eye contact Head Exam: Present: normal inspection, no evidence of injury Eye Exam: Normal inspection: bilateral, PERRL: bilateral, EOMI: bilateral Ears, Nose, Throat: Present: normal ENT inspection, normal pharynx Neck: Present: normal inspection, nontender Respiratory: Present: no respiratory distress, normal breath sounds, chest nontender, lungs clear Cardiovascular/Chest: Present: regular rate, rhythm, no murmur Gastrointestinal/Abdominal: Present: normal bowel sounds, nontender, nondistended, soft Back Exam: Present: normal inspection, normal range of motion, no vertebral tenderness Extremity Exam: Present: normal inspection, non-tender, normal range of motion, no edema Neurological Exam: Present: other - The patient is awake and alert. She knows where she is. She does not make any eye contact. She frequently says "I do not know what is going on "when I asked her if this feels like her past heart attack she said "this is so long ago I cannot remember "it was actually just 3 years or less ago. I asked if any of her family members had a heart attack and she said her daughter of a heart attack. When I asked her how old her daughter was she said it was 4 or 5 years ago. When I attempted to clarify and say but what how old was her daughter when this happened she said "I do not know "she does move all extremities Skin Exam: Present: normal color, warm/dry Lymphatic Exam: Present: no adenopathy Progress - Results and Orders Patient's Lab Results:: I have reviewed the patient's lab results. - Vital Signs Patient's Vital Signs:: I have reviewed the patient's vital signs. Vital Signs: Vital Signs 02/22/19 06:12 Temperature 36.6 C Pulse Rate 104 H Respiratory Rate 20 Blood Pressure 144/90 H - EKG EKG #1 EKG read: Interp. by me EKG Comments: Sinus tachycardia ventricular rate of 102. Normal axis. QRS is widened at 134 without a definite right or left bundle branch pattern. ST segments are not elevated. Has what appears to be Q waves in V1 and V2. This is unchanged from previous EKG. - X-Ray X-Ray #1 X-Ray: chest Interpretation: Interp. by me X-ray Comments: No acute cardiopulmonary disease - Progress/Reassessment Chief Complaint: Chest Pain Plan - Plan Plan: Patient's troponin is elevated at 0.324. I cannot tell if the patient is still having chest pain as when I asked her she says I do not know. Then she will say how it hurts. When I asked if her chest is hurting she will say yes but at other times she will say I do not know. I will start her on some nitroglycerin. She had some sort of brain injury but she is not sure what that was. Therefore I do not know if Lovenox or heparin is acceptable. We will attempt to get a hold of her son. Patient is going to need to be transferred to [facility] as we do not have a advisory intern available. I spoke with Dr. Sams who is on at the ER at [facility]. The patient had a post traumatic intracranial bleed in 2014. The patient is not getting TPA. We have no reason to believe she has any intracranial abnormalities at this time. She has symptoms concerning for acute myocardial ischemia. The EKG does not show a STEMI but she does have a bump in her troponin. I think in this situation the risks of heparin are not outweighed by the benefits. We will start heparin. She will be started on a nitro drip. I was called in the room by nursing staff. The patient had spun into ventricular tachycardia. Had almost an appearance of torsade. She was still agonal breathing. No pulse. Pads were attached and she was received 1 biphasic shock at 150 J. Return of spontaneous circulation immediately. I spoke with the ER physician over at [facility] made them aware of this. He requested the patient be loaded with amiodarone. He requested that I give the first 150 mg over 10 minutes. He then requested that I give the patient 60 mg/h for another 150. That is 1 mg/min for the other 150. Nurses have spoken with the power of research attorney. They do want the patient transferred. We are not sure of the patient's DNR status because we do not have the sheets which listed limitations. At this time the power of research attorney wants us to transfer her. She will receive shocks but not be intubated if this happens again. Critical care time 45 minutes The patient is now awake and she is saying that if her heart stops again she does not want it to be shocked back into rhythm. The patient's son has arrived and the patient's daughter called on the phone. The patient daughter says that she is the healthcare power of research attorney. No information in terms of a form was brought with the patient. We have the patient's neighbor going to look and see if they can find the DNR form and decision-making forms that are in the patient's room. The plan at this time is to hold off on transferring the patient and managed strictly with medicines. They are aware that if this is the case the patient will likely continue to have arrhythmias and may end up passing away. I have spoken with the ER at [facility]. I made them aware that at this time we are not going to be transferring the patient Departure Clinical Impression: Unstable angina, Ventricular tachycardia - Departure Disposition: Short Term Hospital Inpatient Condition: Fair Referrals: Suman Sewell MD [Primary Care Provider] -
[2019-02-22 06:46] LABS: Hematocrit 36.8 % (37.0-47.0); Hemoglobin 13.4 gm/dL (12.5-16.0); Mean Cell Volume 93.6 fl (78-100); Mean Corpuscular Hemoglobin 34.1 pg (27-31); Mean Corpuscular Hgb Conc 36.4 g/dl (32-36); Mean Platelet Volume 10.3 fl (8-12.5); Neutrophil # 11.3 K/mm3 (1.3-6.0); Neutrophil % 81.3 % (42-75.0); Platelet Count 268 K/mm3 (150-450); Red Blood Count 3.93 M/mm3 (4.2-5.4); Red Cell Distribution Width 11.8 % (11.5-14.0); White Blood Count 13.9 K/mm3 (4.0-10.5)
[2019-02-22 07:03] LABS: Albumin * 3.3 gm/dl (3.4-5.0); Anion Gap 14.8 mmol/L (6.8-13.8); BUN/Creatinine Ratio 15.4 (9.0-21.6); Ca. Corrected For Albumin 9.5 mg/dL (8.4-10.2); Calcium * 9.3 mg/dL (7.9-10.9); Potassium 3.8 mmol/L (3.4-4.6); Total Protein 6.9 gm/dL (6.2-8.2)
[2019-02-22 07:04] LABS: Troponin I 0.328 ng/mL (0.00-0.10)
[2019-02-22] MEDS ORDERED: HEPARIN SODIUM,PORCINE 5,000 UNITS/ML VIAL IV ONE (07:38)
[2019-02-22] MEDS ORDERED: NORMAL SALINE 1,000 ML IV PRN (07:38)
[2019-02-22] MEDS ORDERED: NITROGLYCERIN IN 5 % DEXTROSE 50 MG/250 ML INFUS..BTL IV PRN (07:40)
[2019-02-22] MEDS ORDERED: HEPARIN SODIUM,PORCINE/D5W 25,000 UNITS/500 ML BAG IV SCH (07:45)
[2019-02-22] MEDS ORDERED: ONDANSETRON HCL/PF 2 MG/ML VIAL ONE (07:53)
[2019-02-22] MEDS ORDERED: AMIODARONE HCL 150 MG/100 ML PIGGYBACK IV ONE (07:53)
[2019-02-22] MEDS ORDERED: AMIODARONE HCL 50 MG/ML AMPUL IV STA (07:53)
[2019-02-22] MEDS ORDERED: ONDANSETRON HCL/PF 2 MG/ML VIAL IV ONE (07:56)
[2019-02-22 07:58] LABS: Prothrombin Time (Patient) 10.9 Seconds (9.1-10.7)
[2019-02-22 07:59] LABS: INR 1.11 INR (0.92-1.08); Partial Thrombolplastin Time 23.6 Seconds (24-32)
[2019-02-22] MEDS ORDERED: AMIODARONE HCL 50 MG/ML AMPUL IV ONE (09:00)
[2019-02-22] MEDS ORDERED: ZOLPIDEM TARTRATE 5 MG TABLET PO PRN (11:11)
[2019-02-22] MEDS ORDERED: ONDANSETRON HCL/PF 2 MG/ML VIAL IV PRN (11:11)
[2019-02-22] MEDS ORDERED: MORPHINE SULFATE 2 MG/ML DISP.SYRIN IV PRN (11:11)
[2019-02-22] MEDS ORDERED: guaiFENesin 100 MG/5 ML SYRUP PO PRN (11:11)
[2019-02-22] MEDS: FAMOTIDINE 20 MG in DEXTROSE 5 % IN WATER 100 ML IV SCH ×4 (11:45→22:59)
--- NOTE | 2019-02-22 11:57 | HP ---
Chief Complaint - Chief Complaint Date of Service: 02/22/19 Time of Service: 11:02 Chief Complaint: I had chest pain this morning History of Present Illness: 78-year-old female with past medical history of anxiety disorder, atrial fibrillation, coronary artery disease, depression, type 2 diabetes, hyperlipidemia, intracranial hemorrhage, non-STEMI that occurred in 2015, osteoarthritis, osteoporosis, restless leg syndrome, and COPD was brought to our ER by EMS from her assisted living facility due to retrosternal chest pain that started this morning while the patient got up from bed and attempted to go to the bathroom. Patient denied any nausea or vomiting or any radiation of her pain to other areas, she is not able to report any aggravating or alleviating factors. Patient has an extensive cardiac history and was treated for a non- STEMI several years ago, since then she has chronic atrial fibrillation treated on chronic medications. She denies any recent illness and says she was fine yesterday and throughout the night then her pain started this morning. During bedside evaluation of patient she appeared incoherent at times and was a poor historian. Patient had a intracranial hemorrhage several years ago that left her with impaired memory however she lives alone at the assisted living facility and is able to ambulate and carry out her activities of daily living. Medical History (Updated 02/22/19 @ 08:07 by Tavo Daugherty MD) Osteoarthritis (Chronic) Onset Date: Unknown LV dysfunction (Chronic) Onset Date: Unknown Regional LV dysfunction with a hypokinetic septum and apex. Ejection Fraction is 50-55% Intracranial hemorrhage (Chronic) Onset Date: ~05/2015 [facility] Neurosurgery after fall. 05/29/15 CT brain showed left frontal epidural hematoma with 7mm of left to right midline shift, small left frontal parietal subarachnoid hemorrhage. left posterior subgaleal hematoma Hypertension (Chronic) Onset Date: ~1992 Hyperlipidemia (Chronic) Onset Date: ~1992 Hiatal hernia (Chronic) Onset Date: Unknown Glucose intolerance (Chronic) Onset Date: Unknown Diverticulitis (Chronic) Onset Date: Unknown Diabetes 1.5, managed as type 2 (Chronic) Onset Date: Unknown Depression (Chronic) Onset Date: Unknown CAD (coronary artery disease) (Chronic) Onset Date: Unknown two vessel, sub-totally occluded left anterior descending 40-50% stenosis at the origin of the right coronary Anxiety (Chronic) Onset Date: Unknown Atrial fibrillation with RVR 10/25/2018- converted to SR with diltiazem Hx of bone density study Onset Date: ~03/2003 Osteopenia, spine -1.4, hip -1.9 Myocardial infarction Onset Date: ~200604/24/16 Non Q wave, jasvir-procedural DC as a consequence of a diagonal branch occlusion, non STEMI DC Osteoporosis Onset Date: Unknown Restless leg syndrome Onset Date: Unknown Rotator cuff syndrome Onset Date: Unknown bilateral shoulders right greater than left Surgical History: Surgical History (Updated 10/26/18 @ 07:55 by Zander Stevens DO) Abnormal angiogram Onset Date: ~04/[address] elevation DC, two vessel CAD, the LAD is chronically occluded after the D1 branch and fills by R to L collaterals. The D1 had a ruptured plaque with a subtotal occlusion and slow flow. The circumflex has diffuse luminal irregularities. The RCA is large with mild luminal irregularities. Stent to the D1 with a 2.25 x 16 mm Synergy DE stent, 99% to 0% Epidermal cyst Onset Date: ~02/25/14 excision epidermal inclusion cyst. [place]; Left breast H/O colonoscopy Onset Date: ~10/09/12 [place] severe sigmoid diverticulosis H/O heart artery stent Onset Date: ~07/2006 Drug eluding stent to the LAD, 07/2006 using a 2.5 x 20mm TAXUS drug eluding stent History of cardiac cath Onset Date: ~2006 Stent placement to the LAD History of cataract surgery Onset Date: ~10/2003 bilateral History of craniotomy Onset Date: ~05/29/15 [facility] History of esophagogastroduodenoscopy (EGD) Onset Date: ~02/02/13 [place] with foreign body removal History of esophagogastroduodenoscopy (EGD) Onset Date: ~10/09/12 with Biopsy; E[place]inda Vianey test Negative, large hiatal hernia History of hysterectomy Onset Date: ~1971 Abdominal History of incision and drainage Onset Date: ~02/10/14 [place]; Left breast abscess- epidermal inclusion cyst with acute inflammation Hx laparoscopic cholecystectomy Onset Date: ~1982 open Family History: Family History (Updated 02/27/18 @ 15:30 by Gloria White RN) Father , age 57 CVA (cerebral vascular accident) Mother , age 73 COPD (chronic obstructive pulmonary disease) Social History: (Last Reviewed 02/22/19 @ 10:38 by Heather Leiva RN) Social History: adopted: No Marital status: lives independently: Yes household members: none number of children: 7 current occupational status: retired Highest education level completed: 11th grade Service: No Tobacco: Smoking Status: Never smoker Alcohol: alcohol intake: former Substance Use: substance use type: unknown Dietary Habits: caffeine: No Peds Patient Hx - Developmental: No Pertinent Hx Peds Patient Hx - Medical: No Pertinent Hx Peds Patient Hx - Cardiac/Respiratory: No Pertinent Hx Peds Patient Hx - Surgical: No Surgical History Patient History - Cancer: No Hx of Cancer Review Of Systems (GEN) - Review of Systems Generalized/Overall Review: Present: No Symptoms Reported EENTM: Present: No Symptoms Reported Respiratory: Present: No Symptoms Reported Cardiac: Present: Chest Pain Abdominal: Present: No Symptoms Reported Genitourinary: Present: No Symptoms Reported Musculoskeletal: Present: No Symptoms Reported Neurological: Present: No Symptoms Reported, Pre-existing Deficit - Memory loss Skin: Present: No Symptoms Reported Endocrine: Present: No Symptoms Reported Immunizations: IMMUNIZATION HX Immunizations Up to Date Yes History of Influenza Vaccine No Hx Pneumococcal Vaccination No Allergies/Adverse Reactions: Allergies Allergy/AdvReac Type Severity Reaction Status Date / Time atorvastatin [From Lipitor] Allergy Intermediate myalgia Verified 02/22/19 10:39 rabeprazole [From Aciphex] Allergy Intermediate itching Verified 02/22/19 10:39 phenobarbital Allergy Verified 02/22/19 10:39 simvastatin [From Zocor] AdvReac Intermediate muscle Verified 02/22/19 10:39 aches aspirin AdvReac Verified 02/22/19 10:39 Home Medications: HOME MEDICATIONS Aspirin 81 mg PO DAILY 04/24/16 [Last Taken Unknown] Pantoprazole Sodium 40 mg PO DAILY 09/29/17 [Last Taken Unknown] calcium carbonate 500 mg (1,250 mg)-vitamin D3 400 unit tablet 1 tab PO BID 02/27/18 [Last Taken Unknown] carvedilol 6.25 mg tablet 3.1 mg PO BID tab 02/27/18 [Last Taken Unknown] cholecalciferol (vitamin D3) 2,000 unit capsule 1,000 unit PO DAILY 02/27/18 [Last Taken Unknown] ipratropium-albuterol 0.5 mg-3 mg(2.5 mg base)/3 mL nebulization soln 3 ml IH BID ml 02/27/18 [Last Taken Unknown] furosemide 40 mg tablet 20 mg PO DAILY #90 tab 04/29/18 [Last Taken Unknown] Blood Sugar Diagnostic [Contour Test Strip] 0 ea .ROUTE .MEDSUPPLY 06/13/18 [Last Taken Unknown] lancets 30 gauge See Dose Instructions .ROUTE .MEDSUPPLY #200 ea 06/27/18 [Last Taken Unknown] potassium chloride ER 10 mEq tablet,extended release(part/cryst) 10 meq PO DAILY #90 tab 06/27/18 [Last Taken Unknown] diltiazem ER 180 mg capsule,24 hr,extended release See Rx Instructions .ROUTE .COMPLEX #30 capsule 12/22/18 [Last Taken Unknown] losartan 50 mg tablet 50 mg PO DAILY #90 tab 12/22/18 [Last Taken Unknown] blood sugar diagnostic strips See Dose Instructions .ROUTE .MEDSUPPLY #100 ea 12/23/18 [Last Taken Unknown] Exam - Exam Vital Signs: Vital Signs - Last Taken Temp 36.6 C 02/22/19 10:16 Pulse 88 02/22/19 10:16 Resp 12 02/22/19 10:16 BP 106/59 02/22/19 10:16 Pulse Ox 90 L 02/22/19 10:16 Constitutional: Present: Alert, Cooperative, Well developed, Well nourished, No distress, Elderly, Looks Older than stated age ENT Exam: Present: normal ENT inspection, hearing grossly normal, pharynx annel l, TMs normal Eye Exam: bilateral eye: normal inspection, PERRL, EOMI Neck: Present: non-tender, full range of motion, supple, normal inspection, trac hea midline Back Exam: Present: normal inspection, no CVA tenderness, no vertebral tenderness Breasts: Present: Exam deferred Respiratory: Present: chest non-tender, no respiratory distress, no accessory muscle use, decreased breath sounds Cardiovascular/Chest: Present: normal peripheral pulses, no chest tenderness, no edema, no gallop, no JVD, no murmur, no rub, irregularly irregular Peripheral Pulses: carotid (R): 3+, carotid (L): 3+, femoral (R): 3+, femoral (L): 3+ Abdomen: Present: Normal bowel sounds, soft, nondistended, no rebound tenderness, no hepatospenomegaly, no masses, tender - Diffuse tenderness on palpation /Rectal: Present: Exam deferred Extremity: Present: normal range of motion, non-tender, normal inspection, no pedal edema, no calf tenderness, normal capillary refill Skin Exam: Present: normal color, warm/dry, no cyanosis Lymphatic: Present: no adenopathy Neurologic: Present: transmission supervisor II-XII nml as tested, normal cerebellar test, no motor/sensory deficits, alert, normal mood/affect, oriented x 3 Appearance: Present: appropriate appearance, appropriate insight, neat, no memory impairment Eye contact: Present: normal speech, avoids eye contact, refused to answer, uncooperative Thoughts: Present: no apparent hallucination, incoherent Diagnostic Studies: Abnormal Lab Results 02/22/19 02/22/19 02/22/19 Range/Units 06:44 06:44 07:52 WBC 13.9 H (4.0-10.5) K/mm3 RBC 3.93 L (4.2-5.4) M/mm3 Hct 36.8 L (37.0-47.0) % MCH 34.1 H (27-31) pg MCHC 36.4 H (32-36) g/dl Immature Gran # (Auto) 0.06 H (0.000-0.0310) K/mm3 Neutrophils % 81.3 H (42-75.0) % Lymphocytes % 12.4 L (20-51) % Neutrophils # 11.3 H (1.3-6.0) K/mm3 PT 10.9 H (9.1-10.7) Seconds INR (Anticoag Therapy) 1.11 H (0.92-1.08) INR PTT ([place]) 23.6 L (24-32) Seconds Plasma Sodium 143 H (130-142) mmol/L Anion Gap 14.8 H (6.8-13.8) mmol/L Random Glucose 213 H (70-110) mg/dL ALT 6 L (19-67) U/L Alkaline Phosphatase 37 L (50-170) U/L Troponin I 0.328 H* (0.00-0.10) ng/mL Albumin 3.3 L (3.4-5.0) gm/dl Laboratory Results WBC 13.9 K/mm3 (4.0-10.5) H 02/22/19 06:44 RBC 3.93 M/mm3 (4.2-5.4) L 02/22/19 06:44 Hgb 13.4 gm/dL (12.5-16.0) 02/22/19 06:44 Hct 36.8 % (37.0-47.0) L 02/22/19 06:44 MCV 93.6 fl (78-100) 02/22/19 06:44 MCH 34.1 pg (27-31) H 02/22/19 06:44 MCHC 36.4 g/dl (32-36) H 02/22/19 06:44 RDW 11.8 % (11.5-14.0) 02/22/19 06:44 Plt Count 268 K/mm3 (150-450) 02/22/19 06:44 MPV 10.3 fl (8-12.5) 02/22/19 06:44 Immature Gran % (Auto) 0.40 % (0.001-0.429) 02/22/19 06:44 Immature Gran # (Auto) 0.06 K/mm3 (0.000-0.0310) H 02/22/19 06:44 81.3 % (42-75.0) H 02/22/19 06:44 12.4 % (20-51) L 02/22/19 06:44 5.0 % (0.0-9) 02/22/19 06:44 0.6 % (0.0-3.0) 02/22/19 06:44 0.3 % (0.0-1.0) 02/22/19 06:44 Nucleated RBC % 0.0 k/mm3 (0-1) 02/22/19 06:44 11.3 K/mm3 (1.3-6.0) H 02/22/19 06:44 1.72 k/mm3 (1.5-3.5) 02/22/19 06:44 0.7 k/mm3 (0.0-1.0) 02/22/19 06:44 0.1 k/mm3 (0.0-0.7) 02/22/19 06:44 Absolute Basophils 0.0 k/mm3 (0.0-0.1) 02/22/19 06:44 PT 10.9 Seconds (9.1-10.7) H 02/22/19 07:52 INR (Anticoag Therapy) 1.11 INR (0.92-1.08) H 02/22/19 07:52 PTT ([place]) 23.6 Seconds (24-32) L 02/22/19 07:52 Sodium 141 mmol/L (132-142) 02/22/19 06:44 143 mmol/L (130-142) H 02/22/19 06:44 Potassium 3.8 mmol/L (3.4-4.6) 02/22/19 06:44 Chloride 101 mmol/L (97-106) 02/22/19 06:44 Carbon Dioxide 29.0 mmol/L (24-32.6) 02/22/19 06:44 14.8 mmol/L (6.8-13.8) H 02/22/19 06:44 BUN 14 mg/dL (3-23) 02/22/19 06:44 0.91 mg/dL (0.4-1.4) 02/22/19 06:44 Est GFR (Non-Af Amer) 63 mL/min (60-130) 02/22/19 06:44 15.4 (9.0-21.6) 02/22/19 06:44 213 mg/dL (70-110) H 02/22/19 06:44 Calcium 9.3 mg/dL (7.9-10.9) 02/22/19 06:44 Calcium Adj for Albumin 9.5 mg/dL (8.4-10.2) 02/22/19 06:44 1.0 mg/dL (0.0-1.1) 02/22/19 06:44 AST 17 U/L (0-48) 02/22/19 06:44 ALT 6 U/L (19-67) L 02/22/19 06:44 37 U/L (50-170) L 02/22/19 06:44 0.328 ng/mL (0.00-0.10) H* 02/22/19 06:44 6.9 gm/dL (6.2-8.2) 02/22/19 06:44 3.3 gm/dl (3.4-5.0) L 02/22/19 06:44 Assessment/Plan - Narrative Narrative: Patient was evaluated and medical chart was reviewed and decision to admit to inpatient unit with a diagnosis of unstable angina was made. Patient was originally going to be transferred to [place] for evaluation and possible intervention by urban sociologist, ER physician at [facility] communicated with the ER physician at [facility] and she was accepted. However once her family members arrived there was a dispute whether or not to transfer the patient or keep her here [facility] for only comfort measures, eventually her legal documents brought in by her power of estate attorney demonstrated her wishes that in the event that something like this were to occur she only wanted comfort measures as an only medication to make her comfortable. Patient's daughter is her medical power of estate attorney and she reiterated her mother's wishes and refused transferring her mother to a cardiac unit and also refused any treatment for her mother's condition including nitroglycerin or heparin. It was explained to the patient and her family members that it is possible that the patient infarcted given her risk factors and elevated troponin, and that in situations like these it is recommended that patient be transferred to her cardiac unit with a urban sociologist and possibly a Medical Claims Analyst. I also explained to them that if they chose not to transfer the patient, she would need treatment with IV nitrates and IV heparin as well as other medication. In fact the patient was placed on continuous infusion of both medications but the family as well as the patient asked that all treatments stop including chronic medications and that she is to only receive comfort measures to make her comfortable. Therefore patient was admitted to our inpatient unit where she will be treated with only pain medications, antitussives, and her inhalers on a as needed basis. Also of importance, the patient coded went into ventricular tachycardia and became pulseless and unresponsive while in the ER and had to be resuscitated before her family arrived and stated her DNR status. Since then the patient has remained in atrial fibrillation but maintained stable vitals. She is unable to confirm or deny chest pain when asked she only keeps repeating that "I do not know what is going on". But she appears comfortable at the moment. - Assessment/Plan (1) Unstable angina Problem: Acute (2) Ventricular tachycardia Problem: Resolved (3) Memory loss Problem: Chronic (4) Atrial fibrillation Problem: Chronic Qualifiers: Atrial fibrillation type: chronic Qualified Code(s): I48.2 - Chronic atrial fibrillation (5) CHF (congestive heart failure) Problem: Chronic Qualifiers: Heart failure chronicity: chronic (6) History of successful cardiopulmonary resuscitation Problem: Acute (7) COPD (chronic obstructive pulmonary disease) Problem: Chronic (8) Diabetes 1.5, managed as type 2 Problem: Acute
[2019-02-22] MEDS ORDERED: ALBUTEROL SULFATE/IPRATROPIUM 3 ML NEBU IH SCH (19:00)
[2019-02-22] MEDS ORDERED: CALCIUM CARBONATE/VITAMIN D3 1 TAB TABLET PO SCH (21:00)
[2019-02-22] MEDS ORDERED: CARVEDILOL 3.125 MG TABLET PO SCH (21:00)
[2019-02-22] MEDS: CARVEDILOL 6.25 MG TABLET PO SCH (21:09)
[2019-02-22] MEDS: LORazepam 2 MG/ML DISP.SYRIN IV PRN (21:09)
[2019-02-22] MEDS: ACETAMINOPHEN 325 MG TABLET PO PRN (21:15)
[2019-02-23] MEDS: ACETAMINOPHEN 325 MG TABLET PO PRN ×2 (05:09→14:33)
[2019-02-23] MEDS: ASPIRIN 81 MG TAB.CHEW PO SCH (08:45)
[2019-02-23] MEDS: LOSARTAN POTASSIUM 50 MG TABLET PO SCH (08:45)
[2019-02-23] MEDS: POTASSIUM CHLORIDE 10 MEQ TABLET.SA PO SCH (08:45)
[2019-02-23] MEDS: CARVEDILOL 6.25 MG TABLET PO SCH ×2 (08:46→20:32)
[2019-02-23] MEDS ORDERED: POTASSIUM CHLORIDE 10 MEQ TABLET.SA PO SCH (09:00)
[2019-02-23] MEDS ORDERED: DILTIAZEM HCL 180 MG CAP.SR.24H PO SCH (09:00)
[2019-02-23] MEDS ORDERED: CHOLECALCIFEROL 1,000 UNIT CAPSULE PO SCH (09:00)
[2019-02-23] MEDS ORDERED: FUROSEMIDE 10 MG/ML VIAL IV SCH (09:00)
[2019-02-23] MEDS ORDERED: LOSARTAN POTASSIUM 50 MG TABLET PO SCH (09:00)
[2019-02-23] MEDS ORDERED: FUROSEMIDE 20 MG TABLET PO SCH (09:00)
[2019-02-23] MEDS: FAMOTIDINE 20 MG in DEXTROSE 5 % IN WATER 100 ML IV SCH ×2 (11:31)
--- NOTE | 2019-02-23 13:30 | PN ---
Jhoan Note - Interim Date: 02/23/19 Time: 13:28 Narrative: 02/23/19 13:28 patient is confused. patient daughter, JORDAN , does not want to send her home today as she is more confused. she is willing to repeat labs and do work up now. will repeat CBC, CMP, troponin and do UA and UCS if warranted for her confusion. she does have dementia / MMSE a few months back and they did not want her her to be on Aricept/namenda or get worked up and get a neurology consult.
[2019-02-23] MEDS: LORazepam 2 MG/ML DISP.SYRIN IM PRN ×2 (13:33→23:53)
[2019-02-23] MEDS ORDERED: HALOPERIDOL LACTATE 5 MG/ML VIAL IM PRN ×2 (14:19→20:26)
[2019-02-23 15:43] LABS: Hematocrit 36.9 % (37.0-47.0); Hemoglobin 13.2 gm/dL (12.5-16.0); Mean Cell Volume 94.9 fl (78-100); Mean Corpuscular Hemoglobin 33.9 pg (27-31); Mean Corpuscular Hgb Conc 35.8 g/dl (32-36); Mean Platelet Volume 10.6 fl (8-12.5); Neutrophil # 12.5 K/mm3 (1.3-6.0); Neutrophil % 85.9 % (42-75.0); Platelet Count 228 K/mm3 (150-450); Red Blood Count 3.89 M/mm3 (4.2-5.4); Red Cell Distribution Width 12.2 % (11.5-14.0); White Blood Count 14.5 K/mm3 (4.0-10.5)
[2019-02-23 16:06] LABS: Albumin * 2.9 gm/dl (3.4-5.0); Anion Gap 11.5 mmol/L (6.8-13.8); Bilirubin, Total 0.6 mg/dL (0.0-1.1); Ca. Corrected For Albumin 9.4 mg/dL (8.4-10.2); Calcium * 8.8 mg/dL (7.9-10.9); Carbon Dioxide 31.5 mmol/L (24-32.6); Total Protein 5.8 gm/dL (6.2-8.2)
[2019-02-23 16:26] LABS: Troponin I 40.469 ng/mL (0.00-0.10)
[2019-02-23 16:30] LABS: Urine Appearance Clear (CLEAR); Urine Bilirubin 1 mg/dl (NEGATIVE); Urine Blood Negative /ul (NEGATIVE); Urine Color Yellow; Urine Ketone Negative (NEGATIVE); Urine Nitrite Negative (NEGATIVE); Urine Protein Negative (NEGATIVE); Urine Specific Gravity 1.025 SP.GR. (1.005-1.010); Urine Urobilinogen Normal (NORMAL)
[2019-02-23 16:31] LABS: Urine Amorphous Sediment Moderate - 2+ (NONE-FEW); Urine Bacteria TRACE; Urine Hyaline Cast 0-5 /LPF; Urine RBC None Seen /hpf (0-5); Urine WBC None Seen /hpf (0-5)
--- NOTE | 2019-02-23 19:32 | PN ---
Subjective - Date and Time Seen Date: 02/23/19 Time: 19:21 Subjective Narrative: patient became more confused and was getting out of her bed and was not able to be controlled and pulled out her IV. we gave her Ativan which did not affect her and we gave her Haldol. she is now sleeping. Objective - Review of Systems Misc: All systems neg except as marked - unreliable due to earlier confusion/ now sleeping - Vitals Vitals: Last Vital Signs Temp 37.2 C 02/23/19 08:00 Pulse 101 H 02/23/19 08:49 Resp 18 02/23/19 08:00 BP 110/58 02/23/19 08:49 Pulse Ox 91 L 02/23/19 08:00 - Abnormal Lab Findings Abnormal Lab Findings: Abnormal Lab Results 02/23/19 02/23/19 02/23/19 Range/Units 15:30 15:30 15:50 WBC 14.5 H (4.0-10.5) K/mm3 RBC 3.89 L (4.2-5.4) M/mm3 Hct 36.9 L (37.0-47.0) % MCH 33.9 H (27-31) pg Immature Gran % (Auto) 0.60 H (0.001-0.429) % Immature Gran # (Auto) 0.08 H (0.000-0.0310) K/mm3 Neutrophils % 85.9 H (42-75.0) % Lymphocytes % 7.2 L (20-51) % Neutrophils # 12.5 H (1.3-6.0) K/mm3 Lymphocytes # 1.04 L (1.5-3.5) k/mm3 Est GFR (Non-Af Amer) 52 L (60-130) mL/min Random Glucose 204 H (70-110) mg/dL AST 197 H (0-48) U/L Alkaline Phosphatase 30 L (50-170) U/L Troponin I 40.469 H* (0.00-0.10) ng/mL Total Protein 5.8 L (6.2-8.2) gm/dL Albumin 2.9 L (3.4-5.0) gm/dl Urine Bilirubin 1 H (NEGATIVE) mg/dl Amorphous Sediment Moderate - 2+ H (NONE-FEW) Hyaline Casts 0-5 H (NONE) /LPF Urine Comment Culture ordered L - Exam Constitutional: Present: Alert - AAO x 1, Other ENT Exam: Present: hearing grossly normal Neck: Present: supple Respiratory: Present: decreased breath sounds, No rales, No wheezing Cardiovascular/Chest: Present: no JVD, no murmur, irregularly irregular Abdomen: Present: Normal bowel sounds, soft, nontender, nondistended Extremity: Present: no calf tenderness. Absent: pedal edema Assessment/Plan - Problems/Diagnosis (1) Chest pain Problem: Resolved (2) Elevated troponin I level Problem: Acute Narrative: due to NSTEMI. (3) Non-ST elevation myocardial infarction (NSTEMI) Problem: Acute Narrative: elevated tropnin. dis\cussed with POA. they do not want agrressive management - no anticoagulation, transfer for cardiac cath, but agrees to Echo in a.m. to see if how much cardiac function is remaining. Shge is a DNR/DNI. (4) Confusion Problem: Acute Narrative: not metabolic, no UTI. could be due to delirium with baseline dementia but likely also be due to decreased cardiac function with decreased cerebral flow. will check Echo in am. if WNL , consider doing a head CTS. (5) COPD (chronic obstructive pulmonary disease) Problem: Chronic (6) Atrial fibrillation Problem: Chronic Qualifiers: Atrial fibrillation type: chronic Qualified Code(s): I48.2 - Chronic atrial fibrillation (7) CAD (coronary artery disease) Problem: Chronic Qualifiers: Coronary Disease-Associated Artery/Lesion type: [place] artery [place] vs. transplanted heart: [place] heart Associated angina: without angina Qualified Code(s): I25.10 - Atherosclerotic heart disease of [place] coronary artery without angina pectoris (8) Hyperlipidemia Problem: Chronic (9) Hypertension Problem: Chronic Qualifiers: Hypertension type: essential hypertension Qualified Code(s): I10 - Essential (primary) hypertension
[2019-02-24] MEDS ORDERED: LORazepam 1 MG TABLET PO PRN (09:07)
[2019-02-24] MEDS: CARVEDILOL 6.25 MG TABLET PO SCH ×2 (09:20→20:17)
[2019-02-24] MEDS: LOSARTAN POTASSIUM 50 MG TABLET PO SCH (09:20)
[2019-02-24] MEDS: ASPIRIN 81 MG TAB.CHEW PO SCH (09:21)
[2019-02-24] MEDS: POTASSIUM CHLORIDE 10 MEQ TABLET.SA PO SCH (09:21)
--- NOTE | 2019-02-24 14:19 | PN ---
Progess Note - Interim Date: 02/24/19 Time: 14:08 Narrative: 02/24/19 14:08 Echo showed EF 30-35%. positive diastoic dysfunction and RVSP 54 mm HG , Pulmonary hypertension.
--- NOTE | 2019-02-24 14:31 | PN ---
Subjective - Date and Time Seen Date: 02/24/19 Time: 14:23 Subjective Narrative: patient remains confused. her BNP went up to 27,000+. Echo showed EF of 30-35 %, diastolic dyfunction, RVSP 54 mm Hg, Pulmonary hypertension. she is a DNR/DNI. Objective - Review of Systems Misc: All systems neg except as marked - unreilable due to her confusion - Vitals Vitals: Last Vital Signs Temp 36.7 C 02/24/19 13:00 Pulse 68 02/24/19 13:00 Resp 20 02/24/19 13:00 BP 86/43 L 02/24/19 13:00 Pulse Ox 97 02/24/19 13:00 - Abnormal Lab Findings Abnormal Lab Findings: Abnormal Lab Results 02/23/19 02/23/19 02/23/19 Range/Units 15:16 15:30 15:30 WBC 14.5 H (4.0-10.5) K/mm3 RBC 3.89 L (4.2-5.4) M/mm3 Hct 36.9 L (37.0-47.0) % MCH 33.9 H (27-31) pg Immature Gran % (Auto) 0.60 H (0.001-0.429) % Immature Gran # (Auto) 0.08 H (0.000-0.0310) K/mm3 Neutrophils % 85.9 H (42-75.0) % Lymphocytes % 7.2 L (20-51) % Neutrophils # 12.5 H (1.3-6.0) K/mm3 Lymphocytes # 1.04 L (1.5-3.5) k/mm3 Est GFR (Non-Af Amer) 52 L (60-130) mL/min Random Glucose 204 H (70-110) mg/dL AST 197 H (0-48) U/L Alkaline Phosphatase 30 L (50-170) U/L Troponin I 40.469 H* (0.00-0.10) ng/mL B-Natriuretic Peptide 98183 H (5-550) pg/mL Total Protein 5.8 L (6.2-8.2) gm/dL Albumin 2.9 L (3.4-5.0) gm/dl Urine Bilirubin (NEGATIVE) mg/dl Amorphous Sediment (NONE-FEW) Hyaline Casts (NONE) /LPF Urine Comment 02/23/19 Range/Units 15:50 WBC (4.0-10.5) K/mm3 RBC (4.2-5.4) M/mm3 Hct (37.0-47.0) % MCH (27-31) pg Immature Gran % (Auto) (0.001-0.429) % Immature Gran # (Auto) (0.000-0.0310) K/mm3 Neutrophils % (42-75.0) % Lymphocytes % (20-51) % Neutrophils # (1.3-6.0) K/mm3 Lymphocytes # (1.5-3.5) k/mm3 Est GFR (Non-Af Amer) (60-130) mL/min Random Glucose (70-110) mg/dL AST (0-48) U/L Alkaline Phosphatase (50-170) U/L Troponin I (0.00-0.10) ng/mL B-Natriuretic Peptide (5-550) pg/mL Total Protein (6.2-8.2) gm/dL Albumin (3.4-5.0) gm/dl Urine Bilirubin 1 H (NEGATIVE) mg/dl Amorphous Sediment Moderate - 2+ H (NONE-FEW) Hyaline Casts 0-5 H (NONE) /LPF Urine Comment Culture ordered L - Exam Constitutional: Present: Alert - AAO x 1 ENT Exam: Present: hearing grossly normal Neck: Present: supple Respiratory: Present: decreased breath sounds, rales, No wheezing Cardiovascular/Chest: Present: regular rate, rhythm, JVD, systolic murmur Abdomen: Present: Normal bowel sounds, soft, nontender, nondistended Extremity: Present: no calf tenderness, pedal edema Assessment/Plan Plan Narrative: NSTEMI with significant decrease in systolic function with diastolic dysfunction and concomitant PHTN from left HF.The POA did not wqnt aggressive measures and even medical management with anticoagulation. She wanted only comfort measures . I am recommending Hospice care. The patient remains confused. - Problems/Diagnosis (1) Hypoxia Problem: Acute (2) Systolic and diastolic CHF, acute Problem: Acute Narrative: will recommend hospice care. EF 30-35%. (3) Pulmonary hypertension Problem: Acute Narrative: due to left HF (4) Chest pain Problem: Resolved (5) Elevated troponin I level Problem: Acute Narrative: due to NSTEMI (6) Non-ST elevation myocardial infarction (NSTEMI) Problem: Acute Narrative: EF 30-35 % (7) Confusion Problem: Acute Narrative: delirium on top of baseline dementia. could also be due to her decreased cardiac function causing decreased cerebral flow. she was hypoxic this morning. (8) COPD (chronic obstructive pulmonary disease) Problem: Chronic (9) Atrial fibrillation Problem: Chronic Qualifiers: Atrial fibrillation type: paroxysmal Qualified Code(s): I48.0 - Paroxysmal atrial fibrillation (10) CAD (coronary artery disease) Problem: Chronic Qualifiers: Coronary Disease-Associated Artery/Lesion type: [place] artery [place] vs. transplanted heart: [place] heart Associated angina: without angina Qualified Code(s): I25.10 - Atherosclerotic heart disease of [place] coronary artery without angina pectoris (11) Hyperlipidemia Problem: Chronic (12) Hypertension Problem: Chronic Qualifiers: Hypertension type: essential hypertension Qualified Code(s): I10 - Essential (primary) hypertension
[2019-02-25] MEDS: LOSARTAN POTASSIUM 50 MG TABLET PO SCH (09:06)
[2019-02-25] MEDS: ASPIRIN 81 MG TAB.CHEW PO SCH (09:06)
[2019-02-25] MEDS: POTASSIUM CHLORIDE 10 MEQ TABLET.SA PO SCH (09:06)
[2019-02-25] MEDS: CARVEDILOL 6.25 MG TABLET PO SCH ×2 (09:06→21:19)
--- NOTE | 2019-02-25 10:29 | PN ---
Progess Note - Interim Date: 02/25/19 Time: 10:28 Narrative: 02/25/19 10:28 Patient remains confused. AAO x 1. awaiting NH placement for hospice.
--- NOTE | 2019-02-25 16:32 | PN ---
Subjective - Date and Time Seen Date: 02/25/19 Time: 16:27 Subjective Narrative: She remains confused but more appropriate with her response to questions. AAO x 1. She is awaiting NH placement for hospice. Objective - Review of Systems Misc: All systems neg except as marked - ROS is unreliable as she denies everything - Vitals Vitals: Last Vital Signs Temp 36.8 C 02/25/19 13:50 Pulse 68 02/25/19 13:50 Resp 20 02/25/19 13:50 BP 100/50 02/25/19 13:50 Pulse Ox 95 02/25/19 13:50 - Exam Constitutional: Present: Alert - AAO x 1 ENT Exam: Present: hearing grossly normal Neck: Present: supple. Absent: lymphadenopathy (R), lymphadenopathy (L) Respiratory: Present: decreased breath sounds, No rales Cardiovascular/Chest: Present: regular rate, rhythm, JVD, systolic murmur Abdomen: Present: Normal bowel sounds, soft, nontender, nondistended Extremity: Present: no calf tenderness, lower extremity edema Assessment/Plan Plan Narrative: We will continue with patient current medications and present management. She is awaiting NH for hospice. - Problems/Diagnosis (1) Hypoxia Problem: Acute (2) Systolic and diastolic CHF, acute Problem: Acute (3) Pulmonary hypertension Problem: Acute (4) Chest pain Problem: Resolved (5) Elevated troponin I level Problem: Acute (6) Non-ST elevation myocardial infarction (NSTEMI) Problem: Acute (7) Confusion Problem: Acute (8) COPD (chronic obstructive pulmonary disease) Problem: Chronic (9) Atrial fibrillation Problem: Chronic Qualifiers: Atrial fibrillation type: paroxysmal Qualified Code(s): I48.0 - Paroxysmal atrial fibrillation (10) CAD (coronary artery disease) Problem: Chronic Qualifiers: Coronary Disease-Associated Artery/Lesion type: [place] artery [place] vs. transplanted heart: [place] heart Associated angina: without angina Qualified Code(s): I25.10 - Atherosclerotic heart disease of [place] coronary artery without angina pectoris (11) Hyperlipidemia Problem: Chronic (12) Hypertension Problem: Chronic Qualifiers: Hypertension type: essential hypertension Qualified Code(s): I10 - Essential (primary) hypertension
[2019-02-25 18:50] LABS: Urine Appearance Slightly Cloudy (CLEAR); Urine Bacteria 1+; Urine Bilirubin Negative (NEGATIVE); Urine Blood Negative /ul (NEGATIVE); Urine Color Yellow; Urine Ketone Negative (NEGATIVE); Urine Nitrite Negative (NEGATIVE); Urine Protein Negative (NEGATIVE); Urine RBC None Seen /hpf (0-5); Urine Urobilinogen Normal (NORMAL)
[2019-02-26] MEDS: ACETAMINOPHEN 325 MG TABLET PO PRN (04:37)
[2019-02-26] MEDS ORDERED: CIPROFLOXACIN HCL 500 MG TABLET PO ONE (08:00)
[2019-02-26] MEDS: LOSARTAN POTASSIUM 50 MG TABLET PO SCH (08:40)
[2019-02-26] MEDS: POTASSIUM CHLORIDE 10 MEQ TABLET.SA PO SCH (08:40)
[2019-02-26] MEDS: CARVEDILOL 6.25 MG TABLET PO SCH ×2 (08:40→21:32)
[2019-02-26] MEDS: ASPIRIN 81 MG TAB.CHEW PO SCH (08:40)
[2019-02-26] MEDS: FUROSEMIDE 40 MG TABLET PO SCH (08:41)
--- NOTE | 2019-02-26 12:40 | PN ---
Subjective - Date and Time Seen Date: 02/26/19 Time: 12:36 Subjective Narrative: she complains of on and off chest pain. none right now. she also complains of SOB. she is less confused today, AAO x 1. she did 19 MMSE score a few months back and they did not want her her to be on Aricept/namenda or get worked up and get a neurology consult. Objective - Review of Systems Misc: All systems neg except as marked - maybe unreliable due to her confusion - Vitals Vitals: Last Vital Signs Temp 36.3 C 02/26/19 06:44 Pulse 66 02/26/19 08:41 Resp 18 02/26/19 06:44 BP 105/58 02/26/19 08:41 Pulse Ox 95 02/26/19 10:54 - Abnormal Lab Findings Abnormal Lab Findings: Abnormal Lab Results 02/25/19 Range/Units 18:30 Ur Leukocyte Esterase 100 H (NEGATIVE) /ul Urine WBC 5-10 H (0-5) /hpf Urine Bacteria 1+ H (NONE) - Exam Constitutional: Present: Alert - AAO x 1 ENT Exam: Present: hearing grossly normal Neck: Present: supple. Absent: lymphadenopathy (R), lymphadenopathy (L) Respiratory: Present: decreased breath sounds, No rales, No wheezing Cardiovascular/Chest: Present: regular rate, rhythm, no JVD, systolic murmur Abdomen: Present: Normal bowel sounds, soft, nontender, nondistended Extremity: Present: no pedal edema, no calf tenderness Assessment/Plan Plan Narrative: We will continue with patient's current medications and present management. She is awaiting detention placement for hospice. - Problems/Diagnosis (1) Hypoxia Problem: Acute (2) Systolic and diastolic CHF, acute Problem: Acute (3) Pulmonary hypertension Problem: Acute (4) Chest pain Problem: Chronic (5) Elevated troponin I level Problem: Acute (6) Non-ST elevation myocardial infarction (NSTEMI) Problem: Acute (7) Confusion Problem: Acute (8) COPD (chronic obstructive pulmonary disease) Problem: Chronic (9) Atrial fibrillation Problem: Chronic Qualifiers: Atrial fibrillation type: paroxysmal Qualified Code(s): I48.0 - Paroxysmal atrial fibrillation (10) CAD (coronary artery disease) Problem: Chronic Qualifiers: Coronary Disease-Associated Artery/Lesion type: [place] artery [place] vs. transplanted heart: [place] heart Associated angina: without angina Qualified Code(s): I25.10 - Atherosclerotic heart disease of [place] coronary artery without angina pectoris (11) Hyperlipidemia Problem: Chronic (12) Hypertension Problem: Chronic Qualifiers: Hypertension type: essential hypertension Qualified Code(s): I10 - Essential (primary) hypertension
[2019-02-27] MEDS: ACETAMINOPHEN 325 MG TABLET PO PRN (02:42)
[2019-02-27] MEDS: CARVEDILOL 6.25 MG TABLET PO SCH ×2 (09:31→20:28)
[2019-02-27] MEDS: FUROSEMIDE 40 MG TABLET PO SCH (09:31)
[2019-02-27] MEDS: ASPIRIN 81 MG TAB.CHEW PO SCH (09:31)
[2019-02-27] MEDS: POTASSIUM CHLORIDE 10 MEQ TABLET.SA PO SCH (09:31)
[2019-02-27] MEDS: LOSARTAN POTASSIUM 50 MG TABLET PO SCH (09:31)
--- NOTE | 2019-02-27 10:32 | PN ---
Subjective - Date and Time Seen Date: 02/27/19 Time: 10:23 Subjective Narrative: patient is AAo x1. she is asking again what happened to her. still awiaitng [place] [facility] for hospice. she does have on and off chest pain. Objective - Review of Systems Misc: All systems neg except as marked - unreliable due to her confusion - Vitals Vitals: Last Vital Signs Temp 36.9 C 02/27/19 06:51 Pulse 71 02/27/19 09:31 Resp 18 02/27/19 06:51 BP 117/77 02/27/19 09:31 Pulse Ox 93 02/27/19 06:51 - Exam Constitutional: Present: Alert - AAo x 1, Elderly ENT Exam: Present: hearing grossly normal Neck: Present: supple. Absent: lymphadenopathy (R), lymphadenopathy (L) Respiratory: Present: decreased breath sounds, No rales, No wheezing Cardiovascular/Chest: Present: JVD, systolic murmur, irregularly irregular Abdomen: Present: Normal bowel sounds, soft, nontender, nondistended Extremity: Present: no calf tenderness, pedal edema Assessment/Plan Plan Narrative: We will continue with current medications and present management. will give her imdur for her chest pain. we have not been drawing labs as she for hospice and comfort measures if the time comes. she is awaiting NH for hospice care. her confusion is likely due to delirium on top of her baseline dementia. - Problems/Diagnosis (1) Hypoxia Problem: Acute (2) Systolic and diastolic CHF, acute Problem: Acute (3) Pulmonary hypertension Problem: Acute (4) Chest pain Problem: Chronic (5) Elevated troponin I level Problem: Acute (6) Non-ST elevation myocardial infarction (NSTEMI) Problem: Acute (7) Confusion Problem: Acute (8) COPD (chronic obstructive pulmonary disease) Problem: Chronic (9) Atrial fibrillation Problem: Chronic Qualifiers: Atrial fibrillation type: paroxysmal Qualified Code(s): I48.0 - Paroxysmal atrial fibrillation (10) CAD (coronary artery disease) Problem: Chronic Qualifiers: Coronary Disease-Associated Artery/Lesion type: [place] artery [place] vs. transplanted heart: [place] heart Associated angina: without angina Qualified Code(s): I25.10 - Atherosclerotic heart disease of [place] coronary artery without angina pectoris (11) Hyperlipidemia Problem: Chronic (12) Hypertension Problem: Chronic Qualifiers: Hypertension type: essential hypertension Qualified Code(s): I10 - Essential (primary) hypertension (13) Dementia Problem: Chronic Qualifiers: Dementia type: Alzheimer's disease
[2019-02-28] MEDS: ASPIRIN 81 MG TAB.CHEW PO SCH (08:56)
[2019-02-28] MEDS: POTASSIUM CHLORIDE 10 MEQ TABLET.SA PO SCH (08:57)
[2019-02-28] MEDS: CARVEDILOL 6.25 MG TABLET PO SCH (08:57)
[2019-02-28] MEDS: FUROSEMIDE 40 MG TABLET PO SCH (08:58)
[2019-02-28] MEDS: LOSARTAN POTASSIUM 50 MG TABLET PO SCH (08:58)
[2019-02-28] MEDS ORDERED: DILTIAZEM HCL 180 MG CAP.SR.24H PO SCH (09:00)
[2019-02-28] MEDS ORDERED: ISOSORBIDE MONONITRATE 30 MG TAB.SR.24H PO SCH (09:00)
[2019-02-28] MEDS ORDERED: NORMAL SALINE 500 ML IV ONE (13:46)
--- NOTE | 2019-02-28 14:33 | PN ---
Subjective - Date and Time Seen Date: 02/28/19 Time: 09:40 Subjective Narrative: Ann is feeling better today and has had an uneventful night. She is otherwise is in no distress. She continues to have an elevated leukocytosis and the etiology is uncertain. Her treatment plan is well-established. Continue same through the weekend. Troponin this morning is 40.4 and the BNP is extremely high. This was measured after she had had a DC cardioversion due to pulseless V. tach given in route. She has remained in normal sinus rhythm. She denies any chest discomfort. Objective - Review of Systems Generalized/Overall Review: Reports: Weakness EENTM: Reports: No Symptoms Reported Respiratory: Reports: No Symptoms Reported Cardiac: Reports: No Symptoms Reported Abdominal: Reports: No Symptoms Reported Genitourinary Symptoms: Reports: No Symptoms Reported Musculoskeletal Complaints: Reports: No Symptoms Reported Neurological: Reports: No Symptoms Reported Skin: Reports: No Symptoms Reported Endocrine: Reports: No Symptoms Reported Misc: All systems neg except as marked - Vitals Vitals: Last Vital Signs Temp 36.9 C 02/28/19 12:47 Pulse 75 02/28/19 12:47 Resp 20 02/28/19 12:47 BP 82/43 L 02/28/19 13:44 Pulse Ox 95 02/28/19 12:47 - EKG/Xray Findings EKG: NSR EKG read: Reviewed by me Interpretation: Reviewed by me - Exam Constitutional: Present: Oriented x3, Cooperative, Well developed, Well nourished ENT Exam: Present: normal ENT inspection, hearing grossly normal, pharynx normal, TMs normal Neck: Present: non-tender, full range of motion Breasts: Present: Exam deferred, Nontender Respiratory: Present: chest non-tender, lungs clear Cardiovascular/Chest: Present: normal peripheral pulses, regular rate, rhythm, no chest tenderness, no edema, no gallop, no JVD, no murmur. 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 Continue current therapy 2. Continue cardiac monitoring 3. EKG and morning lab tomorrow morning - Problems/Diagnosis (1) Leukocytosis Problem: Acute (2) Ventricular tachycardia Problem: Resolved (3) History of successful cardiopulmonary resuscitation Problem: Acute (4) Diabetes 1.5, managed as type 2 Problem: Acute (5) Elevated troponin I level Problem: Acute (6) Coronary artery disease Problem: Chronic Qualifiers: Coronary Disease-Associated Artery/Lesion type: due to calcified coronary lesion Qualified Code(s): I25.10 - Atherosclerotic heart disease of [place] coronary artery without angina pectoris (7) LV dysfunction Problem: Chronic (8) Non-ST elevation myocardial infarction (NSTEMI) Problem: Acute
[2019-02-28] MEDS: ACETAMINOPHEN 325 MG TABLET PO PRN (16:17)
[2019-02-28] MEDS: NORMAL SALINE 1,000 ML IV PRN (19:39)
[2019-03-01] MEDS: ACETAMINOPHEN 325 MG TABLET PO PRN ×2 (03:01→12:25)
[2019-03-01] MEDS: NORMAL SALINE 1,000 ML IV PRN ×3 (03:41→20:27)
[2019-03-01] MEDS: ASPIRIN 81 MG TAB.CHEW PO SCH (09:16)
[2019-03-01] MEDS: POTASSIUM CHLORIDE 10 MEQ TABLET.SA PO SCH (09:17)
--- NOTE | 2019-03-01 16:42 | PN ---
Subjective - Date and Time Seen Date: 03/01/19 Time: 09:10 Subjective Narrative: Ann Cook is sitting up today and feeling some better. She still has moments of confusion but for the most part she has been more lucid. No new lab work has been done and no imaging studies have been performed. Her vital signs have remained stable and she has been afebrile. No new problems have surfaced. She should be ready for discharge tomorrow pending custodial placement. Objective - Review of Systems Generalized/Overall Review: Reports: No Symptoms Reported, Weakness, Malaise, Fatigue EENTM: Reports: No Symptoms Reported Respiratory: Reports: No Symptoms Reported Cardiac: Reports: No Symptoms Reported Abdominal: Reports: No Symptoms Reported Genitourinary Symptoms: Reports: No Symptoms Reported Musculoskeletal Complaints: Reports: No Symptoms Reported Neurological: Reports: No Symptoms Reported Skin: Reports: No Symptoms Reported Endocrine: Reports: No Symptoms Reported - Vitals Vitals: Last Vital Signs Temp 36.6 C 03/01/19 14:00 Pulse 62 03/01/19 14:00 Resp 20 03/01/19 14:00 BP 124/80 03/01/19 14:00 Pulse Ox 96 03/01/19 14:00 - Exam Constitutional: Present: Alert, Oriented x3, Cooperative, No distress ENT Exam: Present: normal ENT inspection, pharynx normal Neck: Present: non-tender, supple, limited range of motion Breasts: Present: Exam deferred Respiratory: Present: chest non-tender, lungs clear, normal breath sounds Cardiovascular/Chest: Present: normal peripheral pulses, regular rate, rhythm, no chest tenderness, no edema Abdomen: Present: Normal bowel sounds, soft, nontender, nondistended /Rectal: Present: Exam deferred Extremity: Present: normal range of motion, non-tender, normal inspection Skin Exam: Present: normal color, warm/dry, no cyanosis Lymphatic: Present: no adenopathy Neurologic: Present: basketball player II-XII nml as tested Appearance: Present: appropriate appearance, appropriate insight, neat, impaired recent memory Eye contact: Present: cooperative, good eye contact, normal speech Thoughts: Present: normal thought pattern, no apparent hallucination Assessment/Plan Plan Narrative: 1. Continue mostly comfort measures. She has rebounded and is doing much better. I will leave it to Dr. Labarre this to decide whether she should have any repeat lab work done prior to discharge. - Problems/Diagnosis (1) Leukocytosis Problem: Acute (2) Ventricular tachycardia Problem: Resolved (3) History of successful cardiopulmonary resuscitation Problem: Acute (4) Diabetes 1.5, managed as type 2 Problem: Acute (5) Elevated troponin I level Problem: Acute (6) Coronary artery disease Problem: Chronic Qualifiers: Coronary Disease-Associated Artery/Lesion type: due to calcified coronary lesion Qualified Code(s): I25.10 - Atherosclerotic heart disease of [place] coronary artery without angina pectoris (7) LV dysfunction Problem: Chronic (8) Non-ST elevation myocardial infarction (NSTEMI) Problem: Acute
[2019-03-02] MEDS: NORMAL SALINE 1,000 ML IV PRN ×2 (04:34→12:52)
--- NOTE | 2019-03-02 08:49 | PN ---
Progess Note - Interim Date: 03/02/19 Time: 08:47 Narrative: 03/02/19 08:47 Patient is pleasantly confused. she does complain of epigastric pain- gastric vs cardiac. POA does not want any lab draws on her. still waiting [facility] for hospice.
--- NOTE | 2019-03-02 09:22 | ECHO ---
This report is available in the EMR
[2019-03-02] MEDS: POTASSIUM CHLORIDE 10 MEQ TABLET.SA PO SCH (09:30)
[2019-03-02] MEDS: ASPIRIN 81 MG TAB.CHEW PO SCH (09:30)
[2019-03-02] MEDS ORDERED: MAGNESIUM HYDROXIDE 30 ML UDC PO ONE (09:39)
[2019-03-02] MEDS: FAMOTIDINE 20 MG TABLET PO SCH (10:12)
--- NOTE | 2019-03-02 14:00 | PN ---
Subjective - Date and Time Seen Date: 03/02/19 Time: 13:56 Subjective Narrative: Patient is pleasantly confused. she does complain of epigastric pain- gastric vs cardiac? POA does not want any lab draws on her. still waiting NH for hospice. Objective - Review of Systems Misc: All systems neg except as marked - unreliable due to her confusion - Vitals Vitals: Last Vital Signs Temp 37.0 C 03/02/19 09:00 Pulse 66 03/02/19 09:00 Resp 20 03/02/19 09:00 BP 122/59 03/02/19 09:00 Pulse Ox 94 03/02/19 09:00 - Exam Constitutional: Present: Alert - AAO x 1, Elderly ENT Exam: Present: hearing grossly normal Neck: Present: supple. Absent: limited range of motion, lymphadenopathy (R) Respiratory: Present: decreased breath sounds, No rales, No wheezing Cardiovascular/Chest: Present: regular rate, rhythm, no JVD, systolic murmur Abdomen: Present: Normal bowel sounds, soft, nondistended, tender - epigastric area Assessment/Plan Plan Narrative: Will continue with present management and cirrent medications. will add Pepcid PO q daily. She is on Imdur. She has a placement for tomorrow for NH hospice. - Problems/Diagnosis (1) Hypoxia Problem: Resolved Narrative: on RA now (2) Systolic and diastolic CHF, acute Problem: Acute (3) Pulmonary hypertension Problem: Acute (4) Chest pain Problem: Chronic (5) Elevated troponin I level Problem: Acute (6) Non-ST elevation myocardial infarction (NSTEMI) Problem: Acute (7) Confusion Problem: Acute (8) COPD (chronic obstructive pulmonary disease) Problem: Chronic (9) Atrial fibrillation Problem: Chronic Qualifiers: Atrial fibrillation type: paroxysmal Qualified Code(s): I48.0 - Paroxysmal atrial fibrillation (10) CAD (coronary artery disease) Problem: Chronic Qualifiers: Coronary Disease-Associated Artery/Lesion type: [place] artery [place] vs. transplanted heart: [place] heart Associated angina: without angina Qualified Code(s): I25.10 - Atherosclerotic heart disease of [place] coronary artery without angina pectoris (11) Hyperlipidemia Problem: Chronic (12) Hypertension Problem: Chronic Qualifiers: Hypertension type: essential hypertension Qualified Code(s): I10 - Essential (primary) hypertension (13) Dementia Problem: Chronic Qualifiers: Dementia type: Alzheimer's disease
[2019-03-02] MEDS: ACETAMINOPHEN 325 MG TABLET PO PRN (17:02)
[2019-03-02] MEDS ORDERED: ALBUTEROL SULFATE/IPRATROPIUM 3 ML NEBU IH ONE (20:26)
[2019-03-02] MEDS ORDERED: MORPHINE SULFATE 4 MG/ML SYRG IV STA (20:27)
[2019-03-02] MEDS: LORazepam 2 MG/ML DISP.SYRIN IV PRN (20:59)
--- NOTE | 2019-03-03 07:44 | DS ---
(1) Hypoxia Problem: Resolved (2) Systolic and diastolic CHF, acute Problem: Resolved (3) Pulmonary hypertension Problem: Acute (4) Chest pain Problem: Acute (5) Elevated troponin I level Problem: Acute (6) Non-ST elevation myocardial infarction (NSTEMI) Problem: Acute (7) Confusion Problem: Acute (8) COPD (chronic obstructive pulmonary disease) Problem: Chronic (9) Atrial fibrillation Problem: Chronic Qualifiers: Atrial fibrillation type: paroxysmal Qualified Code(s): I48.0 - Paroxysmal atrial fibrillation (10) CAD (coronary artery disease) Problem: Chronic Qualifiers: Coronary Disease-Associated Artery/Lesion type: [place] artery [place] vs. transplanted heart: [place] heart Associated angina: without angina Qualified Code(s): I25.10 - Atherosclerotic heart disease of [place] coronary artery without angina pectoris (11) Hyperlipidemia Problem: Chronic (12) Hypertension Problem: Chronic Qualifiers: Hypertension type: essential hypertension Qualified Code(s): I10 - Essential (primary) hypertension (13) Dementia Problem: Chronic Qualifiers: Dementia type: Alzheimer's disease (14) Diabetes Diagnosis(s): diet controlled Problem: Chronic Qualifiers: Diabetes mellitus type: type 2 Date of Discharge:: 03/03/19 Description of Stay: Ann Cook is an 78-year-old female with past medical history of anxiety disorder, atrial fibrillation, coronary artery disease, depression, type 2 diabetes, hyperlipidemia, intracranial hemorrhage, non-STEMI that occurred in 2015, osteoarthritis, osteoporosis, restless leg syndrome, and COPD who was admitted on 02/22/2019 for chest pain. She was brought to our ER by EMS from her assisted living facility due to retrosternal chest pain that started on the mornng of admission while the patient got up from bed and attempted to go to the bathroom. The patient denied any nausea or vomiting or any radiation of her pain to other areas, she was not able to report any aggravating or alleviating factors. She has an extensive cardiac history and was treated for a non-STEMI several years ago, since then she has chronic atrial fibrillation treated on chronic medications. She denied any recent illness and was fine the day before admission and throughout the night then her pain started on the day of admission. In the ED she went into Vtach/Torsades? and was shocked x 1. She was a DNR and the POA did not her to be shocked again if she went into VTach again. Her EKG did not show STEMI but her intitial troponon was 0.39. They wanted her to be comfort measures. The patient appeared incoherent at times and was a poor historian. She had a intracranial hemorrhage several years ago that left her with impaired memory however she lives alone at the assisted living facility and is able to ambulate and carry out her activities of daily living. She did have a MMSE exam a few months back and she scored 19/30. A repeat troponin bumped to 40. Her repeat Echo showed her EF of 30-35% from prior 55%. [place] [address]. She became hypoxic and her diuretic was restarted .She is now back to . The family did not want to be aggressive with medical therapeutic (anticoagulation etc.) or diagnostic interventions. They just wanted to keep her comfortable. She was made hospice pending NH placement. In the floor she remained confused- likely due to delirium on top of her baseline dementia. She is now stable to be discharged with poor prognosis. She complains of intermit tent chest pain even at rest. Since she is going to be hospice when she gets to the NH, will not restrict her diet and put her on general/regular food. Procedures Performed: none Results and Findings: Lab Pending Results 02/22/19 06:44: WBC 13.9 H, RBC 3.93 L, Hgb 13.4, Hct 36.8 L, MCV 93.6, MCH 34.1 H, MCHC 36.4 H, RDW 11.8, Plt Count 268, MPV 10.3, Immature Gran % (Auto) 0.40, Immature Gran # (Auto) 0.06 H, Neutrophils % 81.3 H, Lymphocytes % 12.4 L, Monocytes % 5.0, Eosinophils % 0.6, Basophils % 0.3, Nucleated RBC % 0.0, Neutrophils # 11.3 H, Lymphocytes # 1.72, Monocytes # 0.7, Eosinophils # 0.1, Absolute Basophils 0.0 02/22/19 06:44: Sodium 141, Plasma Sodium 143 H, Potassium 3.8, Chloride 101, Carbon Dioxide 29.0, Anion Gap 14.8 H, BUN 14, Creatinine 0.91, Est GFR (Non-Af Amer) 63, BUN/Creatinine Ratio 15.4, Random Glucose 213 H, Calcium 9.3, Calcium Adj for Albumin 9.5, Total Bilirubin 1.0, AST 17, ALT 6 L, Alkaline Phosphatase 37 L, Troponin I 0.328 H*, Total Protein 6.9, Albumin 3.3 L 02/22/19 07:52: PT 10.9 H, INR (Anticoag Therapy) 1.11 H, PTT ([place]) 23.6 L 02/22/19 15:43: PTT ([place]) 23.9 L 02/23/19 15:16: B-Natriuretic Peptide 19400 H 02/23/19 15:30: WBC 14.5 H, RBC 3.89 L, Hgb 13.2, Hct 36.9 L, MCV 94.9, MCH 33.9 H, MCHC 35.8, RDW 12.2, Plt Count 228, MPV 10.6, Immature Gran % (Auto) 0.60 H, Immature Gran # (Auto) 0.08 H, Neutrophils % 85.9 H, Lymphocytes % 7.2 L, Monocytes % 6.1, Eosinophils % 0.1, Basophils % 0.1, Nucleated RBC % 0.0, Neutrophils # 12.5 H, Lymphocytes # 1.04 L, Monocytes # 0.9, Eosinophils # 0.0, Absolute Basophils 0.0 02/23/19 15:30: Sodium 140, Plasma Sodium 142, Potassium 4.0, Chloride 101, Carbon Dioxide 31.5, Anion Gap 11.5, BUN 14, Creatinine 1.08, Est GFR (Non-Af Amer) 52 L, BUN/Creatinine Ratio 13.0, Random Glucose 204 H, Calcium 8.8, Calcium Adj for Albumin 9.4, Total Bilirubin 0.6, AST 197 H, ALT 37, Alkaline Phosphatase 30 L, Troponin I 40.469 H*, Total Protein 5.8 L, Albumin 2.9 L 02/23/19 15:50: Urine Color Yellow, Urine Appearance Clear, Urine pH 5.0, Ur Specific [place] 1.025, Urine Protein Negative, Urine Glucose (UA) Negative, Urine Ketones Negative, Urine Blood Negative, Urine Nitrate Negative, Urine Bilirubin 1 H, Urine Ictotest Negative, Urine Urobilinogen Normal, Ur Leukocyte Esterase Negative, Urine RBC None seen, Urine WBC None seen, Ur Epithelial Cells 0-5, Amorphous Sediment Moderate - 2+ H, Urine Bacteria Trace, Hyaline Casts 0-5 H, Urine Comment Culture ordered L 02/25/19 18:30: Urine Color Yellow, Urine Appearance Slightly cloudy, Urine pH 6.0, Ur Specific [place] 1.010, Urine Protein Negative, Urine Glucose (UA) Negative, Urine Ketones Negative, Urine Blood Negative, Urine Nitrate Negative, Urine Bilirubin Negative, Urine Urobilinogen Normal, Ur Leukocyte Esterase 100 H, Urine RBC None seen, Urine WBC 5-10 H, Ur Epithelial Cells 0-5, Urine Bacteria 1+ H, Urine Culture Comments Culture to follow Discharge Location: Other - [facility] Disposition: Hospice Home Home Health Agency: [facility] Hospice Condition: Poor Level of Care: ICF Discharge Activity: Activity as tolerated Discharge Diet: General/regular food Referrals: Suman Sewell MD [Primary Care Provider] - Additional Patient Instructions (free text): [facility] Hospice once admitted to [facility]. Call report to Angelia Golden with [facility] Hospice at [phone]. If she does not answer leave a voicemail with report. Fax DC orders and summary to [phone]. Complete Home Medications List: Complete Home Medication List: Pantoprazole Sodium 40 mg PO DAILY 09/29/17 carvedilol 6.25 mg tablet 6.25 mg PO BID tab 02/27/18 furosemide 40 mg tablet 20 mg PO DAILY #90 tab 04/29/18 Blood Sugar Diagnostic [Contour Test Strip] 0 ea .ROUTE .MEDSUPPLY 06/13/18 lancets 30 gauge See Dose Instructions .ROUTE .MEDSUPPLY #200 ea 06/27/18 potassium chloride ER 10 mEq tablet,extended release(part/cryst) 10 meq PO DAILY #90 tab 06/27/18 losartan 50 mg tablet 50 mg PO DAILY #90 tab 12/22/18 blood sugar diagnostic strips See Dose Instructions .ROUTE .MEDSUPPLY #100 ea 12/23/18 Diltiazem HCl [Diltiazem 12Hr ER] 180 mg PO DAILY 02/22/19
[2019-03-03] MEDS: POTASSIUM CHLORIDE 10 MEQ TABLET.SA PO SCH (08:07)
[2019-03-03] MEDS: ASPIRIN 81 MG TAB.CHEW PO SCH (08:07)
[2019-03-03] MEDS: FAMOTIDINE 20 MG TABLET PO SCH (08:07)
[2019-03-03 08:38] VITALS: BP 128/60
== END 2019-03-03 08:40 | disposition hospice, home (50) ==
LOC: ER 06:09 → MS 06:09 → SCU 08:48 → MS 10:15
PROVIDERS: ADMIT Family Medicine; ATTEND Internal Medicine
DX: R41.0 Disorientation, unspecified; I27.22 Pulmonary hypertension due to left heart disease; I50.41 Acute combined systolic (congestive) and diastolic (congestive) heart failure; J44.9 Chronic obstructive pulmonary disease, unspecified; I21.4 Non-ST elevation (NSTEMI) myocardial infarction; D72.89 Other specified disorders of white blood cells; R07.9 Chest pain, unspecified; I11.0 Hypertensive heart disease with heart failure; I25.10 Atherosclerotic heart disease of native coronary artery without angina pectoris; E11.9 Type 2 diabetes mellitus without complications; E78.5 Hyperlipidemia, unspecified; R09.02 Hypoxemia; I48.2 Chronic atrial fibrillation
CPT/HCPCS: 36415; 71010; 71045; 80053; 81001; 83519; 83880; 84484; 85025; 85610; 85730; 87086; 93005; 93306; 94640; 94664; 96365; 96367; 96372; 96375; 99285; G0378; J2405